=== PATIENT | male | born 1965 | race African-American/Black ===

== ENCOUNTER 2016-11-22 14:36 | Emergency (ER) | payer OTHER ==
[2016-11-22] VITALS (7 sets, daily range): BP systolic 90–111; BP diastolic 50–70; PULSE 70–85; RESP 16–17; TEMP 98; O2SAT 98–100
[~2016-11-22] VITALS: Ht 188 cm; Wt 105.0 kg
[~2016-11-22 14:36] MED LIST: ABIL5TAB6 PO; PROT40TA PO; QUET300 PO
--- NOTE | 2016-11-22 15:25 | PD ---
HPI Chief Complaint: chest pain Time Seen by Provider: 15:12 Travel History International Travel<30 days: No Contact w/Intl Traveler<30days: No History of Present Illness HPI 51 YO M with PMH of HTN, chronic pancreatitis, crack cocaine abuse, CVA 2, on Xarelto presents to the ED via EMS from [facility] for evaluation of sudden onset 7/10 central chest pain radiating to the right shoulder. Patient states that he was making a phone call, not under any particular stress at onset. He endorses accompanying shortness of breath and nausea. He denies diaphoresis or palpitations. On presentation he states the right shoulder pain is 10/10, worsened by certain movements. Also complains of 2 days history of tingling of the fingers of bilateral hands. He denies other neuro symptoms. Also complains of dark blood per rectum 1 week. He denies recent alcohol or cocaine use. PFSH Past Medical History Anxiety: Yes Depression: Yes Diminished Hearing: No Gastrointestinal Disorders: Yes (pancreatitis) Hiatal Hernia: Yes Psychiatric: Yes (S/P OD 1 MONTH AGO) Immunizations Current: Yes Pancreatitis: Yes Past Surgical History Cholecystectomy: Yes Other Surgery: Yes (CYST REMOVED FROM BUTT) Social History Alcohol Use: No (Denies; Quit drinking approx 8 mons ago per pt.) Tobacco Use: Yes (Quit 4-5 mons ago; Though did smoke last night. ) Substance Use: Yes (Drug of Choice is Powder Cocaine.) Allergies-Medications (Allergen,Severity, Reaction): Coded Allergies: Ibuprofen (Unverified Allergy, Unknown, 05/03/14) Hx Pancreatitus per pt. Reported Meds & Prescriptions Reported Meds & Active Scripts Active Reported Diphenhydramine (Diphenhydramine HCl) 25 Mg Cap 50 Mg PO BID PRN Lorazepam 2 Mg Tab 2 Mg PO BID PRN Haloperidol 5 Mg Tab 5 Mg PO BID PRN Vistaril (Hydroxyzine Pamoate) 50 Mg Cap 50 Mg PO Q4HR PRN Mirtazapine 45 Mg Tab 45 Mg PO HS Metoprolol Tartrate 25 Mg Tab 25 Mg PO BID Lisinopril 20 Mg Tab 20 Mg PO DAILY Klor-Con 10 (Potassium Chloride) 10 Meq Tab 10 Meq PO BID Lasix (Furosemide) 40 Mg Tab 40 Mg PO DAILY Zenpep (Pancrelipase) 40,000-136,000-218,000 Units Cap 2 Cap PO TIDAC Xarelto (Rivaroxaban) 20 Mg Tab 20 Mg PO DAILY Ambien (Zolpidem Tartrate) 10 Mg Tab 10 Mg PO HS Abilify (Aripiprazole) 10 Mg Tab 10 Mg PO DAILY Review of Systems Except as stated in HPI: all other systems reviewed are Neg Physical Exam Narrative GENERAL: Well-nourished, well-developed athletic black male in no acute distress. SKIN: Focused skin assessment warm/dry. HEAD: Normocephalic. EYES: No scleral icterus. No injection or drainage. NECK: Supple, trachea midline. No JVD or lymphadenopathy. CARDIOVASCULAR: Regular rate and rhythm without murmurs, gallops, or rubs. CHEST: Nontender throughout without deformity or crepitus. No retractions or use of accessory muscles. RESPIRATORY: Breath sounds clear and equal bilaterally. No accessory muscle use. GASTROINTESTINAL: Abdomen soft, non-tender, nondistended. Active bowel sounds. RECTAL EXAM: No masses or tenderness, stool is brown. Guaiac negative. MUSCULOSKELETAL: No cyanosis, or edema. Tender to palpation of the posterior aspect of the right shoulder. Resisted motion of the right shoulder elicits pain. Neurovascularly intact. BACK: Nontender without obvious deformity. No CVA tenderness. Data Data Last Documented VS Vital Signs Date Time Temp Pulse Resp B/P Pulse Ox O2 Delivery O2 Flow Rate FiO2 11/22/16 16:56 78 16 111/64 98 Room Air 11/22/16 15:23 98.0 Orders Electrocardiogram (11/22/16 15:25) B-Type Natriuretic Peptide (11/22/16 15:25) Ckmb (Isoenzyme) Profile (11/22/16 15:25) Complete Blood Count With Diff (11/22/16 15:25) Comprehensive Metabolic Panel (11/22/16 15:25) Magnesium (Mg) (11/22/16 15:25) Prothrombin Time / Inr (Pt) (11/22/16 15:25) Act Partial Throm Time (Ptt) (11/22/16 15:25) Troponin I (11/22/16 15:25) Lipase (11/22/16 15:25) Chest, Single Ap (11/22/16 15:25) Ecg Monitoring (11/22/16 15:25) Bilateral Bp Monitoring (11/22/16 15:25) Iv Access Insert/Monitor (11/22/16 15:25) Oximetry (11/22/16 15:25) Sodium Chloride 0.9% Flush (Ns Flush) (11/22/16 15:30) Nitroglycerin Sl (Nitrostat Sl) (11/22/16 15:30) Urinalysis - C+S If Indicated (11/22/16 15:25) Drug Screen, Random Urine (11/22/16 15:25) Sodium Chlor 0.9% 1000 Ml Inj (Ns 1000 M (11/22/16 15:30) Shoulder, Complete (>2vws) (11/22/16 15:36) Ice/Cold Pack (11/22/16 15:36) CKMB (11/22/16 15:45) CKMB% (11/22/16 15:45) Labs Laboratory Tests Test 11/22/16 11/22/16 15:45 15:50 White Blood Count 6.9 TH/MM3 Red Blood Count 5.26 MIL/MM3 Hemoglobin 14.1 GM/DL Hematocrit 43.3 % Mean Corpuscular Volume 82.4 FL Mean Corpuscular Hemoglobin 26.9 PG Mean Corpuscular Hemoglobin 32.6 % Concent Red Cell Distribution Width 14.4 % Platelet Count 286 TH/MM3 Mean Platelet Volume 8.1 FL Neutrophils (%) (Auto) 61.6 % Lymphocytes (%) (Auto) 26.6 % Monocytes (%) (Auto) 10.2 % Eosinophils (%) (Auto) 1.0 % Basophils (%) (Auto) 0.6 % Neutrophils # (Auto) 4.3 TH/MM3 Lymphocytes # (Auto) 1.8 TH/MM3 Monocytes # (Auto) 0.7 TH/MM3 Eosinophils # (Auto) 0.1 TH/MM3 Basophils # (Auto) 0.0 TH/MM3 CBC Comment DIFF FINAL Differential Comment Prothrombin Time 11.3 SEC Prothromb Time International 1.0 RATIO Ratio Activated Partial 34.3 SEC Thromboplast Time Sodium Level 138 MEQ/L Potassium Level 3.8 MEQ/L Chloride Level 101 MEQ/L Carbon Dioxide Level 29.3 MEQ/L Anion Gap 8 MEQ/L Blood Urea Nitrogen 11 MG/DL Creatinine 1.34 MG/DL Estimat Glomerular Filtration 68 ML/MIN Rate Random Glucose 103 MG/DL Calcium Level 9.0 MG/DL Magnesium Level 2.1 MG/DL Total Bilirubin 0.1 MG/DL Aspartate Amino Transf 24 U/L (AST/SGOT) Alanine Aminotransferase 64 U/L (ALT/SGPT) Alkaline Phosphatase 90 U/L Total Creatine Kinase 163 U/L Creatine Kinase MB 0.5 NG/ML Troponin I LESS THAN 0.02 NG/ML B-Type Natriuretic Peptide LESS THAN 2 PG/ML Total Protein 7.8 GM/DL Albumin 3.8 GM/DL Lipase 362 U/L Urine Color YELLOW Urine Turbidity CLEAR Urine pH 6.5 Urine Specific Bastian 1.012 Urine Protein NEG mg/dL Urine Glucose (UA) NEG mg/dL Urine Ketones NEG mg/dL Urine Occult Blood NEG Urine Nitrite NEG Urine Bilirubin NEG Urine Urobilinogen LESS THAN 2.0 MG/DL Urine Leukocyte Esterase NEG Urine RBC 4 /hpf Urine WBC 1 /hpf Urine Squamous Epithelial <1 /hpf Cells Microscopic Urinalysis Comment CULT NOT INDICATED Urine Opiates Screen NEG Urine Barbiturates Screen NEG Urine Amphetamines Screen NEG Urine Benzodiazepines Screen NEG Urine Cocaine Screen NEG Urine Cannabinoids Screen NEG MDM Medical Decision Making Medical Screen Exam Complete: Yes Emergency Medical Condition: Yes Interpretation(s) EKG rate 88, sinus rhythm. ND interval 161, QRS 92, QTC 366. No ST changes. Reviewed by Dr. Valentine. Differential Diagnosis Chest pain versus ACS versus musculoskeletal pain versus anemia versus CHF exacerbation versus GI bleed versus psychogenic pain versus drug seeking behavior versus Narrative Course 51 YO M with PMH of HTN, chronic pancreatitis, crack cocaine abuse, CVA 2, on Xarelto presents to the ED via EMS from [facility] for evaluation of sudden onset 7/10 central chest pain radiating to the right shoulder. He endorses accompanying shortness of breath and nausea. He denies diaphoresis or palpitations. On presentation he states the right shoulder pain is 10/10, worsened by certain movements. Also complains of 2 days history of tingling of the fingers of bilateral hands. He denies other neuro symptoms. Also complains of dark blood per rectum 1 week. He denies recent alcohol or cocaine use. He alternately complains of chest pain, shoulder pain, neck pain. He is a less than ideal historian. Vitals reviewed. Physical exam reveals a nontoxic-appearing black male in no acute distress. There is no tenderness of the precordium. The chest is clear to auscultation bilaterally. Regular rate and rhythm. No tenderness to palpation of the right shoulder though he does cry out in pain when he attempts to use his right arm to assist himself to sit up. Guaiac negative on rectal exam. Ice pack was applied to the shoulder. The patient was administered aspirin and a single dose of nitroglycerin with no improvement of his symptoms. No concerning abnormalities of the CBC, CMP, coags , UA, tox screen. EKG as above. Chest x-ray without acute cardiopulmonary disease. Cardiac enzymes negative 1. Shoulder x-ray reveals no acute disease. I discussed the results of the workup with the patient. I don't think his pain is cardiogenic. He is instructed to follow up with the primary care. He is agreeable to this plan. He is stable and discharged home. [facility] Point of Care Internal Pos. & Neg. Controls: Passed Fecal Specimen Occult Blood: Negative Diagnosis Primary Impression: Pain Referrals: Primary Care Physician Patient Instructions: General Instructions, Shoulder Pain (ED) Additional Instructions: Rest, hydrate. Return to normal, gentle activities as tolerated. Warm compresses or ice packs applied to areas of pain may help to improve your symptoms. Take Tylenol as needed for continued symptoms. Follow-up with primary care doctor. Return to the ED for any urgent or emergent medical condition. Disposition: 65 DISC TO PSYCH CARE FACILITY Condition: Stable Nya Peterson Nov 22, 2016 15:25
[2016-11-22] MEDS ORDERED: SODIUM CHLOR 0.9% 1000 ML INJ 1,000 ML IV ONE (15:30)
[2016-11-22] MEDS ORDERED: SODIUM CHLORIDE 0.9% FLUSH 10 ML FLUSH IVF PRN (15:30)
[2016-11-22] MEDS: NITROGLYCERIN 0.4 MG SL 25 TABS/BTL SL SCH ×3 (15:35→16:05)
[2016-11-22 16:08] LABS: BLOOD, URINE NEG (NEG); COMMENT (UR) CULT NOT INDICATED; CULTURE IF INDICATED CULT NOT INDICATED; GLUCOSE,URINE NEG (NEG); KETONE, URINE NEG (NEG); NITRITE,URINE NEG (NEG); PH, URINE 6.5 (5.0-8.5); SQUAMOUS EPITHELIAL CELL URINE <1 /hpf (0-5); URINE COLOR YELLOW (YELLW/STRAW)
[2016-11-22 16:12] LABS: AUTOMATED NEUTROPHIL # 4.3 TH/MM3 (1.8-7.7); BASOPHIL % 0.6 % (0.0-2.0); EOSINOPHIL # 0.1 TH/MM3 (0-0.4); HEMATOCRIT 43.3 % (39.0-51.0); HEMO FLAGS DIFF FINAL; LYMPH % 26.6 % (9.0-44.0); LYMPHOCYTE # 1.8 TH/MM3 (1.0-4.8); MEAN CELL VOLUME 82.4 FL (80.0-100.0); MEAN CORPUSCULAR HEMOGLOBIN 26.9 PG (27.0-34.0); MEAN CORPUSCULAR HGB CONC 32.6 % (32.0-36.0); MONO % 10.2 % (0.0-8.0); NEUT % 61.6 % (16.0-70.0); PLATELET COUNT 286 TH/MM3 (150-450); RED BLOOD COUNT 5.26 MIL/MM3 (4.50-5.90); RED CELL DISTRIBUTION WIDTH 14.4 % (11.6-17.2); WHITE BLOOD COUNT 6.9 TH/MM3 (4.0-11.0)
[2016-11-22 16:16] LABS: APTT (PATIENT) 34.3 SEC (24.3-30.1); PROTHROMBIN TIME - PATIENT 11.3 SEC (9.8-11.6)
[2016-11-22 16:30] LABS: ANION GAP 8 MEQ/L (5-15); AST (GOT) 24 U/L (15-37); BICARBONATE 29.3 MEQ/L (21.0-32.0); BLOOD UREA NITROGEN 11 MG/DL (7-18); CHLORIDE 101 MEQ/L (98-107); GLOMERULAR FILTRATION RATE 68 ML/MIN (>89); MAGNESIUM 2.1 MG/DL (1.5-2.5); POTASSIUM 3.8 MEQ/L (3.5-5.1); SODIUM (NA) 138 MEQ/L (136-145)
[2016-11-22 16:35] LABS: ALKALINE PHOSPHATASE 90 U/L (45-117); ALT (GPT) 64 U/L (12-78); CREATINE KINASE 163 U/L (39-308); TOTAL BILIRUBIN ADULT 0.1 MG/DL (0.2-1.0)
[2016-11-22] MEDS ORDERED: VIST50CA PO (16:46)
[2016-11-22] MEDS ORDERED: MIRT45TA PO (16:46)
[2016-11-22] MEDS ORDERED: ARIP1TAB5 PO (16:46)
[2016-11-22] MEDS ORDERED: FURO1TAB60 PO (16:46)
[2016-11-22] MEDS ORDERED: XARE20TA PO (16:46)
[2016-11-22] MEDS ORDERED: LORA2TAB7 PO (16:46)
[2016-11-22] MEDS ORDERED: AMBI10TA PO (16:46)
[2016-11-22] MEDS ORDERED: HALO5TAB PO (16:46)
[2016-11-22] MEDS ORDERED: PANC1CAP9 PO (16:46)
[2016-11-22] MEDS ORDERED: METO25TA3 PO (16:46)
[2016-11-22] MEDS ORDERED: POTA-243 PO (16:46)
[2016-11-22] MEDS ORDERED: LISI-515 PO (16:46)
[2016-11-22 16:47] LABS: CKMB 0.5 NG/ML (0.5-3.6)
[2016-11-22] MEDS ORDERED: DIPH25CA PO (16:47)
--- NOTE | 2016-11-22 17:20 | RADRPT ---
EXAM DATE/TIME: 11/22/2016 16:56 [facility] COMPARISON: No previous studies available for comparison. INDICATIONS : Right shoulder pain starting today with no known trauma MEDICAL HISTORY : None. SURGICAL HISTORY : None. ENCOUNTER: Initial ACUITY: 1 day PAIN SCORE: 5/10 LOCATION: Right entire shoulder FINDINGS: Multiple view examination of the right shoulder demonstrates no evidence of fracture or dislocation. The glenohumeral and acromioclavicular joints are maintained. There is normal range of motion betwe en internal and external rotation. Bony mineralization is normal. CONCLUSION: No acute disease. Pierce Lorenzo MD on November 22, 2016 at 17:18 Board Certified Radiologist. This report was verified electronically.
--- NOTE | 2016-11-22 17:20 | RADRPT ---
EXAM DATE/TIME: 11/22/2016 16:55 [facility] COMPARISON: No previous studies available for comparison. INDICATIONS : Chest pain starting today MEDICAL HISTORY : None. SURGICAL HISTORY : None. ENCOUNTER: Initial ACUITY: 1 day PAIN SCORE: 5/10 LOCATION: Bilateral chest FINDINGS: A single view of the chest demonstrates hypoaeration of the lungs with some minimal airspace disease in left base. There is no evidence of consolidation. The heart and mediastinal structures are unremar kable. CONCLUSION: Minimal left basilar airspace disease characteristic of mild atelectasis. No consolidating infiltrate or acute congestion. Pierce Lorenzo MD on November 22, 2016 at 17:17 Board Certified Radiologist. This report was verified electronically.
--- NOTE | 2016-11-23 11:16 | EKG ---
Date Performed: 11/22/2016 Time Performed: 15:14:54 PTAGE: 51 years EKG: Sinus rhythm NONSPECIFIC T-WAVE ABNORMALITY BORDERLINE ECG NO PREVIOUS TRACING DOCTOR: Joel Cotton Interpretating Date/Time 11/23/2016 11:13:10
== END 2016-11-22 18:04 ==
LOC: NEPD 14:36
DX: M25.511 Pain in right shoulder (principal); K85.90 Acute pancreatitis without necrosis or infection, unspecified; Z87.891 Personal history of nicotine dependence
CPT/HCPCS: 71010; 73030; 80053; 80307; 81001; 82550; 82552; 83690; 83735; 83880; 84484; 85025; 85610; 85730; 93005; 96360; 96361; 99285; J7030

== ENCOUNTER 2016-12-16 11:13 | Inpatient (IN) | payer MEDICAID, OTHER ==
[~2016-12-16] VITALS: Ht 188 cm; Wt 115.6 kg
[~2016-12-16 11:13] MED LIST changes: -ABIL5TAB6 PO; +AMBI10TA PO; +ARIP1TAB5 PO; +DIPH25CA PO; +FURO1TAB60 PO; +HALO5TAB PO; +LISI-515 PO; +LORA2TAB7 PO; +METO25TA3 PO; +MIRT45TA PO; +PANC1CAP9 PO; +POTA-243 PO; -PROT40TA PO; -QUET300 PO; +VIST50CA PO; +XARE20TA PO
--- NOTE | 2016-12-16 11:19 | PD ---
HPI . BA for hearing voices and aggressive behavior Chief Complaint: BA for hearing voices and aggressive behavior Time Seen by Provider: 11:19 Travel History International Travel<30 days: No Contact w/Intl Traveler<30days: No Traveled to known affect area: No History of Present Illness HPI 51 yr old male here under [place] Act. He was hearing voices and they were talking about him. He apparently had a baseball bat and was getting aggressive with surrounding people. He denies any suicide or homicide ideation. He recently had labs on Nov 22. He admits to using cocaine last night. PFSH Past Medical History Anxiety: Yes Depression: Yes Congestive Heart Failure: Yes Cerebrovascular Accident: Yes (X 2) Diabetes: No (HYPOGYLCEMIA) Diminished Hearing: No Gastrointestinal Disorders: Yes (pancreatitis) Hiatal Hernia: Yes Psychiatric: Yes Immunizations Current: Yes Pancreatitis: Yes Past Surgical History Cholecystectomy: Yes Other Surgery: Yes (CYST REMOVED FROM BUTT) Social History Alcohol Use: No (DENIES ) Tobacco Use: No (DENIES) Substance Use: Yes (HX CRACK) Allergies-Medications (Allergen,Severity, Reaction): Coded Allergies: ibuprofen (Unverified Allergy, Unknown, Hives, 12/16/16) hives Reported Meds & Prescriptions Reported Meds & Active Scripts Active Reported Diphenhydramine (Diphenhydramine HCl) 25 Mg Cap 50 Mg PO BID PRN Lorazepam 2 Mg Tab 2 Mg PO BID PRN Haloperidol 5 Mg Tab 5 Mg PO BID PRN Vistaril (Hydroxyzine Pamoate) 50 Mg Cap 50 Mg PO Q4HR PRN Mirtazapine 45 Mg Tab 45 Mg PO HS Metoprolol Tartrate 25 Mg Tab 25 Mg PO BID Lisinopril 20 Mg Tab 20 Mg PO DAILY Klor-Con 10 (Potassium Chloride) 10 Meq Tab 10 Meq PO BID Lasix (Furosemide) 40 Mg Tab 40 Mg PO DAILY Zenpep (Pancrelipase) 40,000-136,000-218,000 Units Cap 2 Cap PO TIDAC Xarelto (Rivaroxaban) 20 Mg Tab 20 Mg PO DAILY Ambien (Zolpidem Tartrate) 10 Mg Tab 10 Mg PO HS Abilify (Aripiprazole) 10 Mg Tab 10 Mg PO DAILY Review of Systems General / Constitutional: No: Fever Eyes: No: Visual changes HENT: No: Headaches Cardiovascular: No: Chest Pain or Discomfort Respiratory: No: Shortness of Breath Gastrointestinal: No: Abdominal Pain Genitourinary: No: Dysuria Musculoskeletal: No: Pain Skin: No Rash Neurologic: No: Weakness Psychiatric: Positive: Disorder of Thought, No: Depression Endocrine: No: Polydipsia Hematologic/Lymphatic: No: Easy Bruising Physical Exam Narrative GENERAL: AAO x 3, no acute distress, Well-nourished, well-developed patient. SKIN: Warm and dry. No visible rashes or bruising. HEAD: Normocephalic and atraumatic. EYES: No scleral icterus. No injection or drainage. EOM intact, PERRLA ENT: No nasal drainage noted. Mucous membranes pink. Airway patent. NECK: Supple, trachea midline. No JVD. CARDIOVASCULAR: Regular rate and rhythm without murmurs, gallops, or rubs. RESPIRATORY: Breath sounds equal bilaterally. No accessory muscle use. No rhonchi or rales. GASTROINTESTINAL: Abdomen soft, non-tender, nondistended. no rebound or guarding EXTREMITIES: No cyanosis or edema. BACK: No obvious deformity. NEURO: CN II-12 intact, brain surgeon strength normal b/l, UE and LE 5/5, no focal deficits PSYCH: AAO x 3, disorganized thought, appears to be looking around exam room randomly, Data Data Last Documented VS Vital Signs Date Time Temp Pulse Resp B/P (MAP) Pulse Ox O2 Delivery O2 Flow Rate FiO2 12/16/16 11:20 18 12/16/16 11:20 97.8 89 115/74 (88) 98 Orders Orders Psych Screen (12/16/16 11:21) Drug Screen, Random Urine (12/16/16 11:21) Alcohol (Ethanol) (12/16/16 11:21) Labs Laboratory Tests Test 12/16/16 11:30 [facility] Medical Decision Making Medical Screen Exam Complete: Yes Emergency Medical Condition: Yes Medical Record Reviewed: Yes Differential Diagnosis drug induced mood disorder, schizophrenia, polysubstance abuse Narrative Course 51 yr old male here under [place] Act. Labs were reviewed from 11/22/16. I have requested drug and alcohol screen. Psych screen also requested. Patient will be medically cleared for psych screen. I have medically cleared the patient as the etoh and drug screen will not change any of my recommendations. He does not have any medical complaints. Diagnosis Primary Impression: Aggressive behavior Condition: Stable Mangali,Ramandeep PA Dec 16, 2016 11:19
[2016-12-16 11:20] VITALS: BP 115/74; PULSE 89; RESP 18; TEMP 97.8; O2SAT 98
[2016-12-16 13:29] VITALS: BP 110/79; PULSE 76; RESP 17; TEMP 97.8; O2SAT 99
[2016-12-16] MEDS ORDERED: BENZTROPINE MESYLATE 2 MG/2 ML VIAL IM PRN (15:30)
[2016-12-16] MEDS ORDERED: LORazepam 2 MG/ML VIAL IM PRN (15:30)
[2016-12-16] MEDS ORDERED: ALUMINUM/MAGNESIUM/SIMETH 30 ML CUP PO PRN (15:30)
[2016-12-16] MEDS ORDERED: BENZTROPINE MESYLATE 1 MG TAB PO PRN (15:30)
[2016-12-16] MEDS ORDERED: ACETAMINOPHEN 325 MG TAB PO PRN (15:30)
[2016-12-16] MEDS ORDERED: MAGNESIUM HYDROXIDE SUSP 30 ML CUP PO PRN (15:30)
[2016-12-16 15:40] VITALS: BP 122/83; TEMP 97.8
[2016-12-16 15:57] VITALS: BP 138/90; PULSE 78; RESP 18; TEMP 98.1; O2SAT 97
[2016-12-16 16:31] LABS: ALT (GPT) 55 U/L (12-78); ANION GAP 13 MEQ/L (5-15); AST (GOT) 26 U/L (15-37); BICARBONATE 23.2 MEQ/L (21.0-32.0); BLOOD UREA NITROGEN 13 MG/DL (7-18); CHLORIDE 104 MEQ/L (98-107); GLOMERULAR FILTRATION RATE 66 ML/MIN (>89); POTASSIUM 3.2 MEQ/L (3.5-5.1); SODIUM (NA) 140 MEQ/L (136-145)
[2016-12-16 16:42] LABS: ALKALINE PHOSPHATASE 84 U/L (45-117); TOTAL BILIRUBIN ADULT 0.4 MG/DL (0.2-1.0)
[2016-12-16 20:13] LABS: APTT (PATIENT) 29.4 SEC (24.3-30.1); PROTHROMBIN TIME - PATIENT 10.7 SEC (9.8-11.6)
[2016-12-16 20:14] LABS: AUTOMATED NEUTROPHIL # 2.6 TH/MM3 (1.8-7.7); BASOPHIL % 0.6 % (0.0-2.0); EOSINOPHIL # 0.2 TH/MM3 (0-0.4); EOSINOPHIL % 3.3 % (0.0-4.0); HEMATOCRIT 39.6 % (39.0-51.0); HEMO FLAGS DIFF FINAL; LYMPH % 37.6 % (9.0-44.0); MEAN CELL VOLUME 83.2 FL (80.0-100.0); MEAN CORPUSCULAR HEMOGLOBIN 26.6 PG (27.0-34.0); MEAN CORPUSCULAR HGB CONC 31.9 % (32.0-36.0); NEUT % 48.5 % (16.0-70.0); PLATELET COUNT 228 TH/MM3 (150-450); RED BLOOD COUNT 4.76 MIL/MM3 (4.50-5.90); RED CELL DISTRIBUTION WIDTH 15.4 % (11.6-17.2); WHITE BLOOD COUNT 5.3 TH/MM3 (4.0-11.0)
[2016-12-17 05:48] VITALS: BP 149/82; PULSE 77; RESP 18; TEMP 98.6; O2SAT 98
[2016-12-17] MEDS ORDERED: REMOVE OLD PATCH T-DERMAL SCH (09:00)
[2016-12-17] MEDS ORDERED: NICOTINE 21 MG/24 HR PATCH T-DERMAL SCH (09:00)
--- NOTE | 2016-12-17 09:13 | HHI.HP ---
Provisional Diagnosis Admission Date Dec 16, 2016 at 15:24 [place] I. 1. Other psychotic disorder Rule out primary psychotic disorder like schizophrenia Rule out drug-induced psychotic disorder 2. Cocaine abuse [place] II. Deferred Certification of Person's Competence To Provide Express and Informed Consent I have personally examined Rayray Redman , a person being served at [facility] on, Dec 17, 2016 09:13. Express and informed consent means consent voluntarily given in writing, by a competent person, after sufficient explanation and disclosure of the subject matter involved to enable the person to make a knowing and willful decision without any element of force, fraud, deceit, duress, or other form of constraint or coercion. This person is 18 years of age or older, is not now known to be incompetent to consent to treatment with a guardian advocate, and does not have a health care surrogate or proxy currently making medical treatment decisions. I have found this person to be one of the following: [x] Competent to provide express and informed consent, as defined above, for voluntary admission to this facility and is competent to provide express and informed consent for treatment. He/she has the consistent capacity to make well reasoned, willful, and knowing decisions concerning his or her medical or mental health treatment. The person fully and consistently understands the purpose of the admission for examination/placement and is fully capable of personally exercising all rights assured [place] Incompetent to provide express and informed consent to voluntary admission, and this is incompetent to provide express and informed consent to treatment. The person must be transferred to involuntary status and a petition for a guardian advocate filed with the Circuit Court. [] Refusing to provide express and informed consent to voluntary admission but is competent to provide express and informed consent for treatment. The person must be discharged or transferred to involuntary status. Form shall be completed within 24 hours of a person's arrival at the receiving facility and filed in the clinical record of each person: 1. Admitted on a voluntary basis 2. Permitted to provide express and informed consent to his/her own treatment 3. Allowed to transfer from involuntary to voluntary status 4. Prior to permitting a person to consent to his or her own treatment after having been previously found incompetent to consent to treatment. History of Present Illness Capacity: Has Capacity HPI Mr. Redman is a 51-year-old male with a reported history of bipolar illness who presents under a Lee act from [employer] alleging that the patient had a history of mental illness and was walking around with a bat. Reviewing the electronic medical record, I note that the patient was admitted most recently here under Dr. Siegel 2014. Patient seen and examined with nurse. Chart reviewed. Case discussed with nursing staff. On my examination today, the patient presents as tense and paranoid. He says that he thought that there was someone under the couch or in the closet of the place where he was staying and so he got a baseball bat in order to protect himself. He reports that something similar happened 3 months ago, and at that time he was walking around with a knife. He says that he has been off of his psychotropic medications because he doesn't have a stable place to store them. He does admit to feeling subjectively edgy and paranoid. He denies any audiovisual hallucinations. Denies any suicidal or homicidal ideation. No depressive symptoms. No hypomanic or manic symptoms. No other delusional material. The remainder of the psychiatric ROS is negative. He complains of generalized myalgias but otherwise has no physical complaints. Past psychiatric history: Reports a history of bipolar illness. He reports that he hasn't seen a psychiatrist in 2 months on an outpatient basis. He was at [facility] about a month ago. He endorses a history of suicide attempt by overdose. Family history: Patient denies any family history of mental illness. Unable dependency history: Patient reports that he uses crack cocaine about every 6 months. He also smokes occasional cannabis. He smokes cigars. Denies any other substance use. Social history: The patient reports that he lives in [place]. He is presently sleeping on someone's couch. He is . At this point, the patient is unable to tolerate further interview and concludes the interview. Review of Systems ROS Limitations: Psychotic Except as stated in HPI: all other systems reviewed are Neg Past Psych History Psychological trauma history No reported trauma history to me. Violence risk - others (6 mos) Indeterminate. Irritable and psychotic. Violence risk - self (6 mos) Indeterminate. Substance Abuse History Drugs/Alcohol past 12 months See above Past Family Social History Coded Allergies: ibuprofen (Unverified Allergy, Unknown, Hives, 12/16/16) hives Past Medical History Reports a history of hypertension, chronic pain and CHF. Reported Medications Diphenhydramine (Diphenhydramine) 25 Mg Cap, 50 MG PO BID Y for AGITATION, CAP 0 Refills 11/22/16 Lorazepam (Lorazepam) 2 Mg Tab, 2 MG PO BID Y for AGITATION, TAB 0 Refills 11/22/16 Haloperidol (Haloperidol) 5 Mg Tab, 5 MG PO BID Y for AGITATION, TAB 0 Refills 11/22/16 Hydroxyzine Pamoate (Vistaril) 50 Mg Cap, 50 MG PO Q4HR Y for ANXIETY, CAP 0 Refills 11/22/16 Mirtazapine (Mirtazapine) 45 Mg Tab, 45 MG PO HS for Depression Control, #30 TAB 0 Refills 11/22/16 Metoprolol Tartrate (Metoprolol Tartrate) 25 Mg Tab, 25 MG PO BID, #60 TAB 0 Refills 11/22/16 Lisinopril (Lisinopril) 20 Mg Tab, 20 MG PO DAILY, #30 TAB 0 Refills 11/22/16 Potassium Chloride ER (Klor-Con 10) 10 Meq Tab, 10 MEQ PO BID for Electrolyte Replacement, #60 TAB 0 Refills 11/22/16 Furosemide (Lasix) 40 Mg Tab, 40 MG PO DAILY, #30 TAB 0 Refills 11/22/16 Pancrelipase (Zenpep) 40,000-136,000-218,000 Units Cap, 2 CAP PO TIDAC for Digestive Aid, #90 CAP 0 Refills 11/22/16 Rivaroxaban (Xarelto) 20 Mg Tab, 20 MG PO DAILY for Blood Clot Prevention, TAB 0 Refills 11/22/16 Zolpidem (Ambien) 10 Mg Tab, 10 MG PO HS for INSOMNIA, TAB 0 Refills 11/22/16 Aripiprazole (Abilify) 10 Mg Tab, 10 MG PO DAILY, #30 TAB 0 Refills 11/22/16 Current Medications Medications (Trade) Dose Ordered Sig/Alia Route Start Time Stop Time Status Last Admin (Ativan) 1 mg Q6H PRN PO 12/16/16 15:30 (Ativan Inj) 1 mg Q6H PRN IM 12/16/16 15:30 (Benadryl) 50 mg HS PRN PO 12/16/16 15:30 (Tylenol) 650 mg Q4H PRN PO 12/16/16 15:30 (Milk Of Magnesia Liq) 30 ml DAILY PRN PO 12/16/16 15:30 (Mag-Al Plus Susp Liq) 30 ml Q6H PRN PO 12/16/16 15:30 (Cogentin) 1 mg Q12H PRN PO 12/16/16 15:30 (Cogentin Inj) 1 mg Q12H PRN IM 12/16/16 15:30 Patient's Strengths (min. 2) In a monitored setting. Verbally fluent. Physical Exam Physical exam completed by hospitalist data processing systems consultant. On my examination today, patient appears to be in no acute physical distress. No motor abnormalities noted. Labs and vitals reviewed: Vital Signs Vital Signs Date Time Temp Pulse Resp B/P (MAP) Pulse Ox O2 Delivery O2 Flow Rate FiO2 12/17/16 05:48 98.6 77 18 149/82 (104) 98 12/16/16 13:29 Room Air Lab Results Test 12/16/16 11:30 12/16/16 13:20 12/16/16 19:34 Blood Urea Nitrogen 13 MG/DL Creatinine 1.39 MG/DL Random Glucose 111 MG/DL Total Protein 7.3 GM/DL Albumin 3.9 GM/DL Calcium Level 9.4 MG/DL Alkaline Phosphatase 84 U/L Aspartate Amino Transf (AST/SGOT) 26 U/L Alanine Aminotransferase (ALT/SGPT) 55 U/L Total Bilirubin 0.4 MG/DL Sodium Level 140 MEQ/L Potassium Level 3.2 MEQ/L Chloride Level 104 MEQ/L Carbon Dioxide Level 23.2 MEQ/L Anion Gap 13 MEQ/L Estimat Glomerular Filtration Rate 66 ML/MIN Thyroid Stimulating Hormone 3rd Gen 0.733 uIU/ML Ethyl Alcohol Level LESS THAN 3 MG/DL Urine Opiates Screen NEG Urine Barbiturates Screen NEG Urine Amphetamines Screen NEG Urine Benzodiazepines Screen NEG Urine Cocaine Screen POS Urine Cannabinoids Screen POS White Blood Count 5.3 TH/MM3 Red Blood Count 4.76 MIL/MM3 Hemoglobin 12.7 GM/DL Hematocrit 39.6 % Mean Corpuscular Volume 83.2 FL Mean Corpuscular Hemoglobin 26.6 PG Mean Corpuscular Hemoglobin Concent 31.9 % Red Cell Distribution Width 15.4 % Platelet Count 228 TH/MM3 Mean Platelet Volume 8.4 FL Neutrophils (%) (Auto) 48.5 % Lymphocytes (%) (Auto) 37.6 % Monocytes (%) (Auto) 10.0 % Eosinophils (%) (Auto) 3.3 % Basophils (%) (Auto) 0.6 % Neutrophils # (Auto) 2.6 TH/MM3 Lymphocytes # (Auto) 2.0 TH/MM3 Monocytes # (Auto) 0.5 TH/MM3 Eosinophils # (Auto) 0.2 TH/MM3 Basophils # (Auto) 0.0 TH/MM3 CBC Comment DIFF FINAL Differential Comment Prothrombin Time 10.7 SEC Prothromb Time International Ratio 1.0 RATIO Activated Partial Thromboplast Time 29.4 SEC Hypokalemia repleted by the hospitalist Mental Status Examination No motor abnormalities noted. Speech: Unremarkable Orientation: x3 Memory: Unremarkable Thought Process: Logical, Linear Thought Content: Paranoid Language Unremarkable Fund of Knowledge Average Hallucination Type: None Attention and Concentration: Good Suicidal Ideation: No Previous Suicide Attempts: Yes Homicidal Ideation: No Previous Homicide Attempts: No Insight: Fair Judgment: Poor Affect: Other (restricted, irritable) Mood: Other (dysphoric) Assessment & Plan Problem List: (1) Other psychotic disorder not due to a substance or known physiological condition ICD Codes: F28 - Other psychotic disorder not due to a substance or known physiological condition (2) Cocaine abuse ICD Codes: F14.10 - Cocaine abuse, uncomplicated Assessment & Plan 51-year-old [place] male with psychiatric history as detailed above who presents under Lee act. On my examination today, the patient presents as tense, irritable and paranoid. Reports a history of bipolar illness although his presentation today is more psychotic in nature. Unclear if he has a primary psychotic illness such as schizophrenia or schizoaffective disorder, primary mood illness with psychotic features, or if his current presentation is largely a result of his substance use. Patient requires psychiatric hospitalization at this time for safety, observation and stabilization. Admit inpatient. Voluntary status. Check hemoglobin A1c and lipid panel. Check coagulation studies. Check BMP and magnesium in the morning. Consult to the hospitalist. Seroquel 50 mg twice daily with plans to titrate to effect for psychosis. Ativan as needed for anxiety, Cogentin as needed for EPS, Benadryl as needed for sleep. Vitals every shift. Counselor to see. Disposition planning. Estimated length of stay: 3-5 days. Discharge Planning Pending stabilization Request HC Surrog/Guard Advoc?: No Nadeem Long MD Dec 17, 2016 09:13
--- NOTE | 2016-12-17 09:28 | PD.CONS ---
[facility] By Nadeem Long MD Reason for Consult Medical management Primary Care Physician No Primary Care Physician Diagnoses: History of Present Illness This is a pleasant 51 y/o male who was brought in under [place] Act due to he was hearing voices and they were talking about him was Aggressive with surrounding people, denied suicide ideas or Homicide ideation, he admitted to abuse Cocaine last night before admission, has Anxiety disorder, Depression with another Psychiatric Hospitalizations, CVA x 2, Pancreatitis, Hiatal Hernia, he has Obesity, Hypertension and CHF he is not taking medicines for the last two months will re start some of them and follow along with Psychiatry specialist. His potassium today is 3.2 he is completely asymptomatic. Review of Systems Constitutional: DENIES: Fever, Chills, Change in appetite Endocrine: DENIES: Heat/cold intolerance Eyes: DENIES: Blurred vision, Eye pain Except as stated in HPI: all other systems reviewed are Neg Past Family Social History Allergies: Coded Allergies: ibuprofen (Unverified Allergy, Unknown, Hives, 12/16/16) hives Past Medical History Anxiety disorder Depression with another Psychiatric Hospitalizations CVA x 2 Pancreatitis Hiatal Hernia Past Surgical History Cholecystectomy Pilonidal cyst removal Reported Medications Reported Meds & Active Scripts Active Reported Diphenhydramine (Diphenhydramine HCl) 25 Mg Cap 50 Mg PO BID PRN Lorazepam 2 Mg Tab 2 Mg PO BID PRN Haloperidol 5 Mg Tab 5 Mg PO BID PRN Vistaril (Hydroxyzine Pamoate) 50 Mg Cap 50 Mg PO Q4HR PRN Mirtazapine 45 Mg Tab 45 Mg PO HS Metoprolol Tartrate 25 Mg Tab 25 Mg PO BID Lisinopril 20 Mg Tab 20 Mg PO DAILY Klor-Con 10 (Potassium Chloride) 10 Meq Tab 10 Meq PO BID Lasix (Furosemide) 40 Mg Tab 40 Mg PO DAILY Zenpep (Pancrelipase) 40,000-136,000-218,000 Units Cap 2 Cap PO TIDAC Xarelto (Rivaroxaban) 20 Mg Tab 20 Mg PO DAILY Ambien (Zolpidem Tartrate) 10 Mg Tab 10 Mg PO HS Abilify (Aripiprazole) 10 Mg Tab 10 Mg PO DAILY Active Ordered Medications Current Medications Medications (Trade) Dose Ordered Sig/Alia Route Start Time Stop Time Status Last Admin (Ativan) 1 mg Q6H PRN PO 12/16/16 15:30 (Ativan Inj) 1 mg Q6H PRN IM 12/16/16 15:30 (Benadryl) 50 mg HS PRN PO 12/16/16 15:30 (Tylenol) 650 mg Q4H PRN PO 12/16/16 15:30 (Milk Of Magnesia Liq) 30 ml DAILY PRN PO 12/16/16 15:30 (Mag-Al Plus Susp Liq) 30 ml Q6H PRN PO 12/16/16 15:30 (Cogentin) 1 mg Q12H PRN PO 12/16/16 15:30 (Cogentin Inj) 1 mg Q12H PRN IM 12/16/16 15:30 Family History Father and Mother with CAD and Hypertension, also Brother with Hypertension. Social History accepted to consumption of Crack Cocaine Smoke Cigars and basically he is Homeless. Physical Exam Vital Signs Vital Signs Date Time Temp Pulse Resp B/P (MAP) Pulse Ox O2 Delivery O2 Flow Rate FiO2 12/17/16 05:48 98.6 77 18 149/82 (104) 98 12/16/16 15:57 98.1 78 18 138/90 (106) 97 12/16/16 15:40 97.8 78 16 122/83 (96) 99 12/16/16 13:29 97.8 76 17 110/79 (89) 99 Room Air 12/16/16 11:20 18 12/16/16 11:20 97.8 89 18 115/74 (88) 98 Physical Exam GENERAL: Obese in no acute distress. SKIN: Warm and dry. No visible rashes or bruising. HEAD: Normocephalic and atraumatic. EYES: No scleral icterus. No injection or drainage. EOM intact, PERRLA ENT: No nasal drainage noted. Mucous membranes pink. Airway patent. NECK: Supple, trachea midline. No JVD. CARDIOVASCULAR: Regular rate and rhythm without murmurs, gallops, or rubs. RESPIRATORY: Breath sounds equal bilaterally. No accessory muscle use. No rhonchi or rales. GASTROINTESTINAL: Abdomen soft, non-tender, nondistended. no rebound or guarding EXTREMITIES: No cyanosis or edema. NEURO: CN II-12 intact, cylinder inspector and tester strength normal b/l, UE and LE 5/5, no focal deficits PSYCH: AAO x 3, good mood. Laboratory Laboratory Tests Test 12/16/16 11:30 12/16/16 13:20 12/16/16 19:34 Blood Urea Nitrogen 13 Creatinine 1.39 Random Glucose 111 Total Protein 7.3 Albumin 3.9 Calcium Level 9.4 Alkaline Phosphatase 84 Aspartate Amino Transf (AST/SGOT) 26 Alanine Aminotransferase (ALT/SGPT) 55 Total Bilirubin 0.4 Sodium Level 140 Potassium Level 3.2 Chloride Level 104 Carbon Dioxide Level 23.2 Anion Gap 13 Estimat Glomerular Filtration Rate 66 Thyroid Stimulating Hormone 3rd Gen 0.733 Ethyl Alcohol Level LESS THAN 3 Urine Opiates Screen NEG Urine Barbiturates Screen NEG Urine Amphetamines Screen NEG Urine Benzodiazepines Screen NEG Urine Cocaine Screen POS Urine Cannabinoids Screen POS White Blood Count 5.3 Red Blood Count 4.76 Hemoglobin 12.7 Hematocrit 39.6 Mean Corpuscular Volume 83.2 Mean Corpuscular Hemoglobin 26.6 Mean Corpuscular Hemoglobin Concent 31.9 Red Cell Distribution Width 15.4 Platelet Count 228 Mean Platelet Volume 8.4 Neutrophils (%) (Auto) 48.5 Lymphocytes (%) (Auto) 37.6 Monocytes (%) (Auto) 10.0 Eosinophils (%) (Auto) 3.3 Basophils (%) (Auto) 0.6 Neutrophils # (Auto) 2.6 Lymphocytes # (Auto) 2.0 Monocytes # (Auto) 0.5 Eosinophils # (Auto) 0.2 Basophils # (Auto) 0.0 CBC Comment DIFF FINAL Differential Comment Prothrombin Time 10.7 Prothromb Time International Ratio 1.0 Activated Partial Thromboplast Time 29.4 Result Diagram: 12/16/16 1934 12/16/16 1130 Imaging No new imaging studies. Assessment and Plan Assessment and Plan 1. Psychosis continue Psychiatric management 2. Anxiety disorder/Depression continue psychiatric managemetn 3. CVA x 2 to continue Xarelto 4. pancreatitis by history continue present care 5. Hypertension controlled started some of his medicines and follow 6. Hypokalemia replacing and following 7. Severe Medical non compliance the patient was not on any medicine for the last two months. 8. Obesity strongly recommended diet and exercise 9. Cocaine abuse and Tobacco dependence strongly recommended to stop this kind of behavior. Complete laboratory DVT prophylaxis with Xarelto Code Status Full Code Discussed Condition With Patient. Denny Winters MD Dec 17, 2016 09:28
[2016-12-17] MEDS ORDERED: POTASSIUM CHLORIDE 20 MEQ CONTROLLED RELEASE TAB PO ONE ×2 (09:30→12:00)
[2016-12-17] MEDS ORDERED: risperiDONE 0.5 MG TAB PO SCH (10:30)
[2016-12-17] MEDS ORDERED: RISP4TAB41 PO (11:20)
[2016-12-17 11:38] LABS: HDL CHOLESTEROL 39.6 MG/DL (40.0-60.0); LDL CHOLESTEROL 47 MG/DL (0-99)
[2016-12-17] MEDS: LIPASE/PROTEASE/AMYLASE (24,000/76,000/120,000) CAP PO SCH ×2 (12:00→17:06)
[2016-12-17 12:55] LABS: HEMOGLOBIN A1a 1.2 %; HEMOGLOBIN A1b 1.9 %; HEMOGLOBIN Ao 84.6 %; HEMOGLOBIN LA1C 1.9 %; HEMOGLOBIN P3 3.7 %
[2016-12-17] MEDS: QUEtiapine FUMARATE 25 MG TAB PO SCH ×3 (12:59→20:42)
[2016-12-17 18:00] VITALS: BP 135/68; PULSE 80; RESP 18; TEMP 98.8; O2SAT 98
[2016-12-17 19:50] VITALS: BP 134/68; PULSE 78
[2016-12-17] MEDS: POTASSIUM CHLORIDE 10 MEQ CONTROLLED RELEASE TAB PO SCH (20:42)
[2016-12-17] MEDS: METOPROLOL TARTRATE 25 MG TAB PO SCH (20:42)
[2016-12-17] MEDS: diphenhydrAMINE HCL 50 MG CAP PO PRN (20:43)
[2016-12-18 05:50] VITALS: BP 136/73; PULSE 73; RESP 17; TEMP 98.1; O2SAT 97
[2016-12-18] MEDS ORDERED: FUROSEMIDE 40 MG TAB PO SCH (09:00)
[2016-12-18] MEDS: LISINOPRIL 20 MG TAB PO SCH (10:11)
[2016-12-18] MEDS: LIPASE/PROTEASE/AMYLASE (24,000/76,000/120,000) CAP PO SCH ×3 (10:11→17:00)
[2016-12-18] MEDS: POTASSIUM CHLORIDE 10 MEQ CONTROLLED RELEASE TAB PO SCH ×2 (10:12→21:35)
[2016-12-18] MEDS: RIVAROXABAN 20 MG TAB PO SCH (10:12)
[2016-12-18] MEDS: QUEtiapine FUMARATE 25 MG TAB PO SCH (10:12)
[2016-12-18] MEDS: METOPROLOL TARTRATE 25 MG TAB PO SCH ×2 (10:12→21:35)
[2016-12-18 10:59] LABS: BICARBONATE 27.8 MEQ/L (21.0-32.0); MAGNESIUM 2.1 MG/DL (1.5-2.5)
--- NOTE | 2016-12-18 10:59 | HHI.PYPN ---
Subjective Remarks Patient initially seen by Dr. Nadeem Long his H&P reviewed and agreed with psychiatric admission template filled out by me Patient seen in his room with counselor Chloé. Chart reviewed. Patient compliant medications. Patient sitting calmly in his room is cooperative is somewhat guarded and vigilant. Acknowledges noncompliance medication explaining it somewhat by his transitional living in various friends places sleeping on cultures. He states he developed feelings as if people work snaking in his house hiding under his sofa. He gives that as of the reason for the baseball bat. He is vague about any auditory hallucinations. Though does denies suicidality homicidality. He minimizes his marijuana and cocaine use. Though he does acknowledge being in a detox program at [facility] just last month. Also sad legal issues related to substance related issues. We did discuss medications. We will increase patient Seroquel to 100 mg 3 times a day. Patient also complains of multiple medical issues the hospitalist evaluation is reviewed and agreed with. For now otherwise continue treatment Review of Systems Except as stated in HPI: all other systems reviewed are Neg Objective Alert: Yes [place]: Person, Place, Situation Mood: Anxious, Depressed Affect: Restricted, Other (guarded) Memory Intact: Comment (fair) Hallucinations: Auditory (vague), Tactile (vague) Delusions: Yes Delusion Type: Paranoid Suicidal: Ideation (deny) Homicidal: Ideation (deny) Insight/Judgment Poor Labs Test 12/18/16 09:25 Vitals/IOs Vital Signs Date Time Temp Pulse Resp B/P (MAP) Pulse Ox O2 Delivery O2 Flow Rate FiO2 12/18/16 05:50 98.1 73 17 136/73 (94) 97 12/16/16 13:29 Room Air Assessment & Plan Problem List: (1) Other psychotic disorder not due to a substance or known physiological condition ICD Codes: F28 - Other psychotic disorder not due to a substance or known physiological condition (2) Cocaine abuse ICD Codes: F14.10 - Cocaine abuse, uncomplicated Assessment & Plan Estimated LOS: days patient continues psychotic delusional paranoid. Please medication adjustments above Justification for Cont. Inpt. At this time patient will decompensate the placed in a lower level of care Discharge Planning To be determined Request HC Surrog/Guard Advoc?: No Michael Antonio MD Dec 18, 2016 10:59
[2016-12-18] MEDS ORDERED: ACETAMINOPHEN 325 MG TAB PO PRN (11:00)
[2016-12-18] MEDS: QUEtiapine FUMARATE 100 MG TAB PO SCH ×2 (13:00→17:27)
[2016-12-18 17:50] VITALS: BP 123/66; PULSE 75; RESP 16; TEMP 98.6; O2SAT 98
--- NOTE | 2016-12-18 20:17 | EKG ---
Date Performed: 12/17/2016 Time Performed: 13:20:48 PTAGE: 51 years EKG: Sinus rhythm NONSPECIFIC T-WAVE ABNORMALITY BORDERLINE ECG PREVIOUS TRACING : 11/22/2016 15.14 DOCTOR: Easton Shell Interpretating Date/Time 12/18/2016 20:13:59
[2016-12-18] MEDS: MIRTAZAPINE 15 MG TAB PO SCH (21:35)
[2016-12-19 06:22] VITALS: BP 128/83; PULSE 67; RESP 18; TEMP 98.2; O2SAT 98
[2016-12-19] MEDS: LIPASE/PROTEASE/AMYLASE (24,000/76,000/120,000) CAP PO SCH ×3 (08:00→16:56)
[2016-12-19] MEDS: METOPROLOL TARTRATE 25 MG TAB PO SCH ×2 (09:00→21:11)
[2016-12-19] MEDS: NICOTINE 21 MG/24 HR PATCH T-DERMAL SCH (09:00)
[2016-12-19] MEDS: RIVAROXABAN 20 MG TAB PO SCH (09:42)
[2016-12-19] MEDS: QUEtiapine FUMARATE 100 MG TAB PO SCH ×3 (09:43→18:00)
[2016-12-19] MEDS: POTASSIUM CHLORIDE 10 MEQ CONTROLLED RELEASE TAB PO SCH ×2 (09:43→21:11)
[2016-12-19] MEDS: LISINOPRIL 20 MG TAB PO SCH (09:43)
--- NOTE | 2016-12-19 13:04 | HHI.PYPN ---
Subjective Remarks Patient seen in his room nurse Erik, chart reviewed, patient compliant medication. Patient continues somewhat vigilant acknowledges continued auditory hallucinations but somewhat softer states she is feeling little more "relaxed" he does denies suicidality at this time. For now continue treatment no change hospitalists progress notes reviewed and agreed with. Hospitalists have signed off on this patient medically cleared him for discharge. Review of Systems Except as stated in HPI: all other systems reviewed are Neg Objective Alert: Yes [place]: Person, Place, Situation Mood: Anxious, Depressed Affect: Restricted, Other (guarded) Memory Intact: Comment (fair) Hallucinations: Auditory (vague), Tactile (vague) Delusions: Yes Delusion Type: Paranoid Suicidal: Ideation (deny) Homicidal: Ideation (deny) Insight/Judgment Poor Vitals/IOs Vital Signs Date Time Temp Pulse Resp B/P (MAP) Pulse Ox O2 Delivery O2 Flow Rate FiO2 12/19/16 06:22 98.2 67 18 128/83 (98) 98 12/16/16 13:29 Room Air Assessment & Plan Problem List: (1) Other psychotic disorder not due to a substance or known physiological condition ICD Codes: F28 - Other psychotic disorder not due to a substance or known physiological condition (2) Cocaine abuse ICD Codes: F14.10 - Cocaine abuse, uncomplicated Assessment & Plan Estimated LOS: days patient remained psychotic and depressed though it is somewhat softer. Compliant medications. Justification for Cont. Inpt. With the present time patient will decompensate the placed in a lower level of care Discharge Planning To be determined Request HC Surrog/Guard Advoc?: No Michael Antonio MD Dec 19, 2016 13:04
[2016-12-19] MEDS: LORazepam 1 MG TAB PO PRN (15:54)
[2016-12-19] MEDS ORDERED: diphenhydrAMINE HCL 50 MG CAP PO ONE (17:00)
[2016-12-19] MEDS ORDERED: LORazepam 2 MG TAB PO ONE (17:00)
[2016-12-19] MEDS ORDERED: HALOPERIDOL 10 MG TAB PO ONE (17:00)
[2016-12-19 18:11] VITALS: BP 142/68; PULSE 79; RESP 18; TEMP 98.7; O2SAT 99
[2016-12-19 20:32] VITALS: BP 139/80; PULSE 76
[2016-12-19] MEDS: MIRTAZAPINE 15 MG TAB PO SCH (21:11)
[2016-12-19] MEDS: diphenhydrAMINE HCL 50 MG CAP PO PRN (21:11)
[2016-12-20 05:44] VITALS: BP 110/73; PULSE 76; RESP 18; TEMP 98.2; O2SAT 97
[2016-12-20] MEDS ORDERED: METO25TA3 PO (08:59)
[2016-12-20] MEDS ORDERED: LISI-515 PO (08:59)
[2016-12-20] MEDS ORDERED: QUET1TAB8 PO (08:59)
[2016-12-20] MEDS ORDERED: MIRTA15 PO (08:59)
[2016-12-20] MEDS ORDERED: XARE20TA PO (08:59)
[2016-12-20] MEDS ORDERED: POTA-243 PO (08:59)
[2016-12-20] MEDS ORDERED: CREON24 PO (08:59)
[2016-12-20] MEDS: RIVAROXABAN 20 MG TAB PO SCH (09:00)
[2016-12-20] MEDS: NICOTINE 21 MG/24 HR PATCH T-DERMAL SCH (09:00)
[2016-12-20] MEDS: METOPROLOL TARTRATE 25 MG TAB PO SCH (09:00)
--- NOTE | 2016-12-20 09:07 | HHI.DS ---
Psychiatry Discharge Summary Inpatient Psychiatric care?: Yes Advance Directive: No Mental Health AdvanceDirective: No Health Care Proxy: No Admission Admission Date Dec 16, 2016 at 15:24 Admission Diagnosis: (1) Other psychotic disorder not due to a substance or known physiological condition ICD Code: F28 - Other psychotic disorder not due to a substance or known physiological condition Brief History Mr. Redman is a 51-year-old male with a reported history of bipolar illness who presents under a Lee act from [place] [employer] alleging that the patient had a history of mental illness and was walking around with a bat. Reviewing the electronic medical record, I note that the patient was admitted most recently here under Dr. Siegel 2014. Patient seen and examined with nurse. Chart reviewed. Case discussed with nursing staff. On my examination today, the patient presents as tense and paranoid. He says that he thought that there was someone under the couch or in the closet of the place where he was staying and so he got a baseball bat in order to protect himself. He reports that something similar happened 3 months ago, and at that time he was walking around with a knife. He says that he has been off of his psychotropic medications because he doesn't have a stable place to store them. He does admit to feeling subjectively edgy and paranoid. He denies any audiovisual hallucinations. Denies any suicidal or homicidal ideation. No depressive symptoms. No hypomanic or manic symptoms. No other delusional material. The remainder of the psychiatric ROS is negative. He complains of generalized myalgias but otherwise has no physical complaints. Past psychiatric history: Reports a history of bipolar illness. He reports that he hasn't seen a psychiatrist in 2 months on an outpatient basis. He was at [facility]. He endorses a history of suicide attempt by overdose. Family history: Patient denies any family history of mental illness. Unable dependency history: Patient reports that he uses crack cocaine about every 6 months. He also smokes occasional cannabis. He smokes cigars. Denies any other substance use. Social history: The patient reports that he lives in [place]. He is presently sleeping on someone's couch. He is . At this point, the patient is unable to tolerate further interview and concludes the interview. Tobacco Use In Past 30 Days: Cigars and/or Pipe Daily Alcohol Use: Never Hospital Course Patient had good night last night. The additional oral medication did relieve much of his anxiety helped relieve the voices. He did sleep well last night. Today he states the voices are markedly diminished. He denies suicidality homicidality. He is able contracted to no harm. He is willing to follow-up outpatient mental health services show compliance with his medication. He is been contacted by our [facility] act coordinator for follow-up with their program. Thus I feel at this time patient reached maximum benefit of this hospitalization. Will be discharged today with Rx 1 month [facility] r[facility] Results Blood Pressure 110 / 73 Vital Signs Date Time Temp Pulse Resp B/P (MAP) Pulse Ox O2 Delivery O2 Flow Rate FiO2 12/20/16 05:44 98.2 76 18 110/73 (85) 97 12/16/16 13:29 Room Air Laboratory Tests Test 12/17/16 09:55 12/18/16 09:25 Cholesterol Level 111 MG/DL (120-200) HDL Cholesterol 39.6 MG/DL (40.0-60.0) Estimat Glomerular Filtration Rate 74 ML/MIN (>89) Laboratory Results Test 12/17/16 09:55 Cholesterol Level 111 MG/DL (120-200) HDL Cholesterol 39.6 MG/DL (40.0-60.0) Hemoglobin A1c 6.0 % (4.3-6.0) LDL Cholesterol 47 MG/DL (0-99) Triglycerides Level 120 MG/DL (42-150) Summary of Procedures None done Pending results at discharge: No Medications # of Antipsychotic meds at D/C: 1 Approp Antipsych med options 1 - Minimum of three failed multiple trials of monotherapy. 2 - Documented plan to taper to monotherapy due to previous use of multiple meds OR cross-taper in progress at D/C. 3 - Documentation of augmentation of Clozapine. 4 - Justification other than those listed in allowable values 1-3, document here : Discharge Discharge Date: Dec 20, 2016 Discharge Diagnosis: (1) Other psychotic disorder not due to a substance or known physiological condition Diagnosis: Principal ICD Code: F28 - Other psychotic disorder not due to a substance or known physiological condition Mental Status Exam at Disch Alert oriented heavyset Afro-[place] male calm cooperative with me. He is normally active. He is euthymic to slightly restricted with decreased range and intensity of his affect. Speech rate and rhythm are within normal limits though no formal thought disorders. There continues vague auditory hallucinations though there is non-intrusive nonthreatening. There are no visual hallucinations. No delusions noted. Insight and judgment is poor cognition grossly intact Pt Condition on Discharge: Stable Discharge Disposition: Discharge Home Discharge Instructions Diet Instructions: As Tolerated, No Restrictions Activities you can perform: Regular-No Restrictions Scheduled Appointment: [facility] (also referred to [facility], and referred to [facility] outpatient voluntary substance abuse assessment) Discharge Time > 30 minutes Discharge/Advance Care Plan Health Problems: (1) Other psychotic disorder not due to a substance or known physiological condition (2) Cocaine abuse Goals to promote your health * To prevent worsening of your condition and complications * To maintain your health at the optimal level Directions to meet your goals Take your medications as prescribed Follow your dietary instruction Follow activity as directed Keep your appointments as scheduled Take your immunizations and boosters as scheduled If your symptoms worsen call your PCP, if no PCP go to Urgent Care Center or Emergency Room For 06/11 questions related to your inpatient stay or results of tests pending at discharge, please contact Dr. Michael Antonio at Smoking is Dangerous to Your Health. Avoid second hand smoking Michael Antonio MD Dec 20, 2016 09:07
[2016-12-20] MEDS: QUEtiapine FUMARATE 100 MG TAB PO SCH ×2 (09:43→12:07)
[2016-12-20] MEDS: LISINOPRIL 20 MG TAB PO SCH (09:43)
[2016-12-20] MEDS: LIPASE/PROTEASE/AMYLASE (24,000/76,000/120,000) CAP PO SCH ×2 (09:43→12:00)
[2016-12-20] MEDS: POTASSIUM CHLORIDE 10 MEQ CONTROLLED RELEASE TAB PO SCH (09:43)
[2016-12-20] MEDS: LORazepam 1 MG TAB PO PRN (09:46)
== END 2016-12-20 13:10 | disposition home or self-care (01) | DRG 885 ==
LOC: NEPD 11:13 → NEDA 15:24 → H270 15:49
PROVIDERS: ADMIT Psychiatry & Neurology Psychiatry; ATTEND Psychiatry & Neurology Psychiatry
DX: F28 Other psychotic disorder not due to a substance or known physiological condition (principal); I11.0 Hypertensive heart disease with heart failure; I50.9 Heart failure, unspecified; F14.10 Cocaine abuse, uncomplicated; F31.9 Bipolar disorder, unspecified; Z91.5 Personal history of self-harm; F17.290 Nicotine dependence, other tobacco product, uncomplicated; G89.29 Other chronic pain; Z86.73 Personal history of transient ischemic attack (TIA), and cerebral infarction without residual deficits; Z91.14 Patient's other noncompliance with medication regimen; Z59.0 Homelessness; Z82.49 Family history of ischemic heart disease and other diseases of the circulatory system; E87.6 Hypokalemia; F41.9 Anxiety disorder, unspecified; K44.9 Diaphragmatic hernia without obstruction or gangrene
CPT/HCPCS: 80048; 80053; 80061; 80307; 83036; 83735; 84443; 85025; 85610; 85730; 93005; 99285; Q0163

== ENCOUNTER 2016-12-24 10:26 | Inpatient (IN) | payer MEDICAID, OTHER ==
[~2016-12-24] VITALS: Ht 188 cm; Wt 117.1 kg
[~2016-12-24 10:26] MED LIST changes: +CREON24 PO; -MIRT45TA PO; +MIRTA15 PO; -PANC1CAP9 PO; +QUET1TAB8 PO; +RISP4TAB41 PO
[2016-12-24 10:38] VITALS: BP 124/75; PULSE 85; RESP 16; TEMP 98; O2SAT 98
--- NOTE | 2016-12-24 11:10 | PD ---
HPI Chief Complaint: Psychiatric Symptoms Time Seen by Provider: 10:31 Travel History International Travel<30 days: No Contact w/Intl Traveler<30days: No Traveled to known affect area: No History of Present Illness HPI 51 year old male presents to the emergency department under Lee Act by local police. Patient states he is getting paranoid, hearing voices, and having hallucinations that started last night. He reports history of schizophrenia, CHF, CVA,.HTN. He states he has not taken his medications this weekend. He denies any other medical complaints. PFSH Past Medical History Anxiety: Yes Depression: Yes Cardiovascular Problems: Yes (per pt hypertension, and cardiac problems) Congestive Heart Failure: Yes Cerebrovascular Accident: Yes (CVA X 2) Diminished Hearing: No Gastrointestinal Disorders: Yes (pancreatitis) Hiatal Hernia: Yes Hypertension: Yes Psychiatric: Yes (hx of Schizoaffective DO) Immunizations Current: Yes Pancreatitis: Yes Schizophrenia: Yes ?: Not Past Surgical History Abdominal Surgery: Yes (CHOLECYSTECTOMY) Cholecystectomy: Yes Other Surgery: Yes (CYST REMOVED FROM BUTT) Social History Alcohol Use: No (DENIES ) Tobacco Use: Yes Substance Use: Yes (COCAINE LAST USED 12/23/16) Allergies-Medications (Allergen,Severity, Reaction): Coded Allergies: ibuprofen (Unverified Allergy, Unknown, Hives, 12/16/16) hives Reported Meds & Prescriptions Reported Meds & Active Scripts Active Metoprolol Tartrate 25 Mg Tab 25 Mg PO BID Xarelto (Rivaroxaban) 20 Mg Tab 20 Mg PO DAILY Quetiapine (Quetiapine Fumarate) 100 Mg Tab 100 Mg PO TID Klor-Con 10 (Potassium Chloride) 10 Meq Tab 10 Meq PO BID Creon (Amylase/Lipase/Protease) 24,000-76,000-120,000 Units Cap 4 Cap PO TIDAC Mirtazapine 15 Mg Tab 45 Mg PO HS Lisinopril 20 Mg Tab 20 Mg PO DAILY Reported Risperdal (Risperidone) 4 Mg Tab 4 Mg PO HS Diphenhydramine (Diphenhydramine HCl) 25 Mg Cap 50 Mg PO BID PRN Lorazepam 2 Mg Tab 2 Mg PO BID PRN Haloperidol 5 Mg Tab 5 Mg PO BID PRN Vistaril (Hydroxyzine Pamoate) 50 Mg Cap 50 Mg PO Q4HR PRN Lasix (Furosemide) 40 Mg Tab 40 Mg PO DAILY Ambien (Zolpidem Tartrate) 10 Mg Tab 10 Mg PO HS Abilify (Aripiprazole) 10 Mg Tab 10 Mg PO DAILY Review of Systems Except as stated in HPI: all other systems reviewed are Neg Physical Exam Narrative GENERAL: Well-nourished, well-developed male patient, afebrile. SKIN: Focused skin assessment warm/dry. HEAD: Normocephalic. Atraumatic. EYES: No scleral icterus. No injection or drainage. NECK: Supple, trachea midline. No JVD or lymphadenopathy. CARDIOVASCULAR: Regular rate and rhythm without murmurs, gallops, or rubs. RESPIRATORY: Breath sounds equal bilaterally. No accessory muscle use. Lungs sounds are clear to auscultation GASTROINTESTINAL: Abdomen soft, non-tender, nondistended. MUSCULOSKELETAL: No cyanosis, or edema. PSYCHIATRIC: No delusional thought processes. No hallucinations. Data Data Last Documented VS Vital Signs Date Time Temp Pulse Resp B/P (MAP) Pulse Ox O2 Delivery O2 Flow Rate FiO2 12/24/16 10:38 98.0 85 16 124/75 (91) 98 Orders Orders Complete Blood Count With Diff (12/24/16 10:53) Comprehensive Metabolic Panel (12/24/16 10:53) Psych Screen (12/24/16 10:53) Drug Screen, Random Urine (12/24/16 10:53) Alcohol (Ethanol) (12/24/16 10:53) Diet Regular Basic (12/24/16 Lunch) Labs Laboratory Tests Test 12/24/16 10:50 12/24/16 11:00 Urine Opiates Screen NEG Urine Barbiturates Screen NEG Urine Amphetamines Screen NEG Urine Benzodiazepines Screen NEG Urine Cocaine Screen POS Urine Cannabinoids Screen POS White Blood Count 6.2 TH/MM3 Red Blood Count 4.82 MIL/MM3 Hemoglobin 13.2 GM/DL Hematocrit 40.2 % Mean Corpuscular Volume 83.4 FL Mean Corpuscular Hemoglobin 27.3 PG Mean Corpuscular Hemoglobin Concent 32.7 % Red Cell Distribution Width 15.7 % Platelet Count 241 TH/MM3 Mean Platelet Volume 8.4 FL Neutrophils (%) (Auto) 57.9 % Lymphocytes (%) (Auto) 30.8 % Monocytes (%) (Auto) 8.4 % Eosinophils (%) (Auto) 1.9 % Basophils (%) (Auto) 1.0 % Neutrophils # (Auto) 3.6 TH/MM3 Lymphocytes # (Auto) 1.9 TH/MM3 Monocytes # (Auto) 0.5 TH/MM3 Eosinophils # (Auto) 0.1 TH/MM3 Basophils # (Auto) 0.1 TH/MM3 CBC Comment DIFF FINAL Differential Comment Blood Urea Nitrogen 13 MG/DL Creatinine 1.40 MG/DL Random Glucose 121 MG/DL Total Protein 7.0 GM/DL Albumin 3.6 GM/DL Calcium Level 8.7 MG/DL Alkaline Phosphatase 79 U/L Aspartate Amino Transf (AST/SGOT) 29 U/L Alanine Aminotransferase (ALT/SGPT) 64 U/L Total Bilirubin 0.5 MG/DL Sodium Level 143 MEQ/L Potassium Level 3.6 MEQ/L Chloride Level 110 MEQ/L Carbon Dioxide Level 25.5 MEQ/L Anion Gap 8 MEQ/L Estimat Glomerular Filtration Rate 65 ML/MIN Ethyl Alcohol Level LESS THAN 3 MG/DL MDM Medical Decision Making Medical Screen Exam Complete: Yes Emergency Medical Condition: Yes Medical Record Reviewed: Yes Differential Diagnosis Schizophrenia versus medical clearance versus depression versus anxiety Narrative Course 51-year-old male presents to the emergency Department under Lee act for psychiatric evaluation. CBC, CMP, clubbing, urine drug screen are ordered and pending. CBC is unremarkable. CMP shows elevated creatinine 1.40, glucose 121. UDS is positive for cocaine and cannabinoids. Alcohol level is less than 3. Patient is medically cleared for psychiatric screening and disposition. Mental health screening discussed with the patient. Psychiatric screen ordered. Diagnosis Primary Impression: Cocaine abuse Additional Instructions: Patient is medically cleared for psychiatric screening and disposition. Condition: Stable Rosa Ladd Dec 24, 2016 11:10
[2016-12-24 11:19] LABS: AUTOMATED NEUTROPHIL # 3.6 TH/MM3 (1.8-7.7); BASOPHIL # 0.1 TH/MM3 (0-0.2); EOSINOPHIL # 0.1 TH/MM3 (0-0.4); EOSINOPHIL % 1.9 % (0.0-4.0); HEMATOCRIT 40.2 % (39.0-51.0); HEMO FLAGS DIFF FINAL; LYMPH % 30.8 % (9.0-44.0); LYMPHOCYTE # 1.9 TH/MM3 (1.0-4.8); MEAN CELL VOLUME 83.4 FL (80.0-100.0); MEAN CORPUSCULAR HEMOGLOBIN 27.3 PG (27.0-34.0); MEAN CORPUSCULAR HGB CONC 32.7 % (32.0-36.0); MONO % 8.4 % (0.0-8.0); NEUT % 57.9 % (16.0-70.0); PLATELET COUNT 241 TH/MM3 (150-450); RED BLOOD COUNT 4.82 MIL/MM3 (4.50-5.90); RED CELL DISTRIBUTION WIDTH 15.7 % (11.6-17.2); WHITE BLOOD COUNT 6.2 TH/MM3 (4.0-11.0)
[2016-12-24 11:34] LABS: ANION GAP 8 MEQ/L (5-15); AST (GOT) 29 U/L (15-37); BICARBONATE 25.5 MEQ/L (21.0-32.0); BLOOD UREA NITROGEN 13 MG/DL (7-18); CHLORIDE 110 MEQ/L (98-107); GLOMERULAR FILTRATION RATE 65 ML/MIN (>89); POTASSIUM 3.6 MEQ/L (3.5-5.1); SODIUM (NA) 143 MEQ/L (136-145)
[2016-12-24 11:36] LABS: ALKALINE PHOSPHATASE 79 U/L (45-117); ALT (GPT) 64 U/L (12-78); TOTAL BILIRUBIN ADULT 0.5 MG/DL (0.2-1.0)
[2016-12-24 11:37] LABS: ALCOHOL LESS THAN 3 MG/DL (0-5)
[2016-12-24 15:49] VITALS: BP 136/74; PULSE 84; RESP 18; O2SAT 96
[2016-12-24] MEDS ORDERED: hydrOXYzine HCL 50 MG TAB PO PRN (18:15)
[2016-12-24] MEDS: diphenhydrAMINE HCL 50 MG CAP PO SCH (21:00)
[2016-12-24] MEDS: ZIPRASIDONE HCL 80 MG CAP PO SCH (21:00)
[2016-12-24 23:12] VITALS: BP 117/58; PULSE 85; RESP 20; TEMP 97.4; O2SAT 98
[2016-12-25 02:15] VITALS: BP_SYST 112; BP_SYST 115; BP_DIAS 59; BP_DIAS 63; PULSE 72; PULSE 77; RESP 18; RESP 20; TEMP 97.1; TEMP 98.1; O2SAT 95; O2SAT 96
[2016-12-25 05:06] VITALS: BP 146/97; PULSE 70; RESP 20; TEMP 97.1; O2SAT 99
[2016-12-25] MEDS: ZIPRASIDONE HCL 80 MG CAP PO SCH ×2 (09:00→22:09)
[2016-12-25 11:30] VITALS: BP 134/65; PULSE 78; RESP 18; O2SAT 98
[2016-12-25 14:40] VITALS: BP 110/62; PULSE 76; RESP 20
[2016-12-25] MEDS ORDERED: ALUMINUM/MAGNESIUM/SIMETH 30 ML CUP PO PRN (18:00)
[2016-12-25] MEDS ORDERED: ACETAMINOPHEN 325 MG TAB PO PRN (18:00)
[2016-12-25] MEDS ORDERED: diphenhydrAMINE HCL 50 MG/ML VIAL IM PRN (18:00)
[2016-12-25] MEDS ORDERED: LORazepam 1 MG TAB PO PRN (18:00)
[2016-12-25] MEDS ORDERED: LORazepam 2 MG/ML VIAL IM PRN (18:00)
[2016-12-25] MEDS ORDERED: hydrOXYzine HCL 50 MG TAB PO PRN (18:00)
[2016-12-25] MEDS ORDERED: MAGNESIUM HYDROXIDE SUSP 30 ML CUP PO PRN (18:00)
[2016-12-25] MEDS ORDERED: diphenhydrAMINE HCL 50 MG CAP PO PRN (18:00)
--- NOTE | 2016-12-25 18:05 | HHI.HP ---
Provisional Diagnosis Admission Date [place] I. Chronic paranoid schizophrenia Certification of Person's Competence To Provide Express and Informed Consent I have personally examined Rayray Redman , a person being served at [facility] on, Dec 25, 2016 17:55. Express and informed consent means consent voluntarily given in writing, by a competent person, after sufficient explanation and disclosure of the subject matter involved to enable the person to make a knowing and willful decision without any element of force, fraud, deceit, duress, or other form of constraint or coercion. This person is 18 years of age or older, is not now known to be incompetent to consent to treatment with a guardian advocate, and does not have a health care surrogate or proxy currently making medical treatment decisions. I have found this person to be one of the following: [x] Competent to provide express and informed consent, as defined above, for voluntary admission to this facility and is competent to provide express and informed consent for treatment. He/she has the consistent capacity to make well reasoned, willful, and knowing decisions concerning his or her medical or mental health treatment. The person fully and consistently understands the purpose of the admission for examination/placement and is fully capable of personally exercising all rights assured [place] [] Incompetent to provide express and informed consent to voluntary admission, and this is incompetent to provide express and informed consent to treatment. The person must be transferred to involuntary status and a petition for a guardian advocate filed with the Circuit Court. [] Refusing to provide express and informed consent to voluntary admission but is competent to provide express and informed consent for treatment. The person must be discharged or transferred to involuntary status. Form shall be completed within 24 hours of a person's arrival at the receiving facility and filed in the clinical record of each person: 1. Admitted on a voluntary basis 2. Permitted to provide express and informed consent to his/her own treatment 3. Allowed to transfer from involuntary to voluntary status 4. Prior to permitting a person to consent to his or her own treatment after having been previously found incompetent to consent to treatment. History of Present Illness Capacity: Has Capacity HPI 51-year-old male with self-admitted multiyear history of paranoid schizophrenia brought in under a Lee act for psychotic symptoms and suicidality. Patient told the lawyer probate that he was hearing voices and that he becomes violent and is unsure what he may do if the voices get worse. He reported to law enforcement that his medications were not working. However, he presented to this emergency department with a bag full of unused medications. The patient had also been staying at [facility] and advised the director transition that he needed help or he would likely harm himself or someone else. Upon interview, the patient does report auditory hallucinations. These hallucinations are generally critical of him and tell him that "they" are out to get him. He does feel paranoid in general and was carrying a knife to protect himself. However the director transition at the [facility] convinced him to relinquish the knife. Patient still feels he is going to be jumped by some unknown person or persons. He feels that someone is trying to kill him. He does remark he feels people are trying to jump through the window to get to him. Finally, he is currently homeless. He was seeing Dr. Jang and Josephine Phelps. He moved up here 2 months ago and feels this is where he wants to live even though he has no home. He was admitted to [facility] approximately a week or 2 ago. He states he gets a Social Security check every month. He is positive for cocaine and marijuana and states he was given cocaine on the street. Review of Systems Except as stated in HPI: all other systems reviewed are Neg Past Psych History Psychological trauma history Denies psychological trauma but many inpatient and outpatient visits for diagnosis of schizophrenia. Violence risk - others (6 mos) Moderate to high. Violence risk - self (6 mos) Moderate to high. Substance Abuse History Drugs/Alcohol past 12 months Patient does abuse alcohol, cannabis and apparently cocaine. Past Family Social History Coded Allergies: ibuprofen (Unverified Allergy, Unknown, Hives, 12/16/16) hives Active Scripts Metoprolol Tartrate (Metoprolol Tartrate) 25 Mg Tab, 25 MG PO BID for health, # 60 TAB 0 Refills Prov:Michael Antonio MD 12/20/16 Rivaroxaban (Xarelto) 20 Mg Tab, 20 MG PO DAILY for health, #30 TAB 0 Refills Prov:Michael Antonio MD 12/20/16 Quetiapine (Quetiapine) 100 Mg Tab, 100 MG PO TID for health, #90 TAB 0 Refills Prov:Michael Antonio MD 12/20/16 Potassium Chloride ER (Klor-Con 10) 10 Meq Tab, 10 MEQ PO BID for health, #60 TAB 0 Refills Prov:Michael Antonio MD 12/20/16 Pancrelipase (Creon) 24,000-76,000-120,000 Units Cap, 4 CAP PO TIDAC for health , #90 CAP 0 Refills Prov:Michael Antonio MD 12/20/16 Mirtazapine (Mirtazapine) 15 Mg Tab, 45 MG PO HS for health, #30 TAB 0 Refills Prov:Michael Antonio MD 12/20/16 Lisinopril (Lisinopril) 20 Mg Tab, 20 MG PO DAILY for health, #30 TAB 0 Refills Prov:Michael Antonio MD 12/20/16 Reported Medications Risperidone (Risperdal) 4 Mg Tab, 4 MG PO HS, #30 TAB 0 Refills 12/17/16 Diphenhydramine (Diphenhydramine) 25 Mg Cap, 50 MG PO BID Y for AGITATION, CAP 0 Refills 11/22/16 Lorazepam (Lorazepam) 2 Mg Tab, 2 MG PO BID Y for AGITATION, TAB 0 Refills 11/22/16 Haloperidol (Haloperidol) 5 Mg Tab, 5 MG PO BID Y for AGITATION, TAB 0 Refills 11/22/16 Hydroxyzine Pamoate (Vistaril) 50 Mg Cap, 50 MG PO Q4HR Y for ANXIETY, CAP 0 Refills 11/22/16 Furosemide (Lasix) 40 Mg Tab, 40 MG PO DAILY, #30 TAB 0 Refills 11/22/16 Zolpidem (Ambien) 10 Mg Tab, 10 MG PO HS for INSOMNIA, TAB 0 Refills 11/22/16 Aripiprazole (Abilify) 10 Mg Tab, 10 MG PO DAILY, #30 TAB 0 Refills 11/22/16 Discontinued Reported Medications Mirtazapine (Mirtazapine) 45 Mg Tab, 45 MG PO HS for Depression Control, #30 TAB 0 Refills 11/22/16 Metoprolol Tartrate (Metoprolol Tartrate) 25 Mg Tab, 25 MG PO BID, #60 TAB 0 Refills 11/22/16 Lisinopril (Lisinopril) 20 Mg Tab, 20 MG PO DAILY, #30 TAB 0 Refills 11/22/16 Potassium Chloride ER (Klor-Con 10) 10 Meq Tab, 10 MEQ PO BID for Electrolyte Replacement, #60 TAB 0 Refills 11/22/16 Pancrelipase (Zenpep) 40,000-136,000-218,000 Units Cap, 2 CAP PO TIDAC for Digestive Aid, #90 CAP 0 Refills 11/22/16 Rivaroxaban (Xarelto) 20 Mg Tab, 20 MG PO DAILY for Blood Clot Prevention, TAB 0 Refills 11/22/16 Current Medications Medications (Trade) Dose Ordered Sig/Alia Route Start Time Stop Time Status Last Admin (Geodon) 80 mg BID PO 12/24/16 21:00 12/25/16 09:00 (Atarax) 50 mg Q6H PRN PO 12/24/16 18:15 (Benadryl) 50 mg HS PO 12/24/16 21:00 Family History Patient does not know his family's mental health history. Social History Unemployed. Does abuse drugs at times. States he receives Social Security disability. Apparently has been noncompliant with treatment in the past. Comes from [facility]. Patient's Strengths (min. 2) Verbal and has access to healthcare. Physical Exam GENERAL: SKIN: Warm and dry. HEAD: Normocephalic. EYES: No scleral icterus. No injection or drainage. NECK: Supple, trachea midline. No JVD or lymphadenopathy. CARDIOVASCULAR: Regular rate and rhythm without murmurs, gallops, or rubs. RESPIRATORY: Breath sounds equal bilaterally. No accessory muscle use. GASTROINTESTINAL: Abdomen soft, non-tender, nondistended. MUSCULOSKELETAL: No cyanosis, or edema. BACK: Nontender without obvious deformity. No CVA tenderness. Vital Signs Vital Signs Date Time Temp Pulse Resp B/P (MAP) Pulse Ox O2 Delivery O2 Flow Rate FiO2 12/25/16 14:40 76 20 110/62 (78) Room Air 12/25/16 11:30 98 12/25/16 05:06 97.1 Mental Status Examination Speech: Hesitant Orientation: x3 Memory: Unremarkable Thought Process: Circumstantial, Tangential Thought Content: Bizarre thinking, Paranoid Hallucination Type: Auditory Attention and Concentration: Abnormal Suicidal Ideation: Yes Previous Suicide Attempts: Yes Homicidal Ideation: No Previous Homicide Attempts: No Insight: Fair Judgment: Unrealistic Affect: Anxious Mood: Anxious Motor Activity: Normal gait Assessment & Plan Problem List: (1) Schizophrenia, paranoid, chronic ICD Codes: F20.0 - Paranoid schizophrenia Assessment & Plan Estimated LOS: days because of the patient's history of schizophrenia with recent noncompliance with medications, illicit drug use and auditory hallucinations with suicidality, this physician feels the patient is at high risk for self-harm. For this reason he will be admitted for evaluation and treatment. Patient is unable to contract for safety. This physician has ordered a complete blood count and comprehensive metabolic panel to determine if any infectious process or metabolic process is causing or contributing to his psychosis. This will also include a thyroid stimulating hormone level, vitamin B-12 level and vitamin D level. He will also have an EKG to determine his cardiac conduction status prior to changing his antipsychotic to Abilify. This physician feels the patient is a candidate for long-acting injectable antipsychotic medication, due to his noncompliance in the past. This physician spoke with the patient's nurse regarding his recent behavior and drug abuse. She feels there is a element of malingering but also describes the patient has strange in his behavior. This physician will also ask case management to get involved for information gathering and disposition planning. Jones Hines MD Dec 25, 2016 18:05
[2016-12-25] MEDS ORDERED: LORazepam 2 MG TAB PO PRN (18:15)
[2016-12-25 18:45] VITALS: BP 142/85; PULSE 70; RESP 18
[2016-12-25 19:50] VITALS: BP 142/93; PULSE 80; RESP 16; TEMP 98.2; O2SAT 80
[2016-12-25] MEDS ORDERED: ABILIFY MAINTENA 400 MG IM ONE (21:00)
[2016-12-25] MEDS: diphenhydrAMINE HCL 50 MG CAP PO SCH (22:09)
[2016-12-25] MEDS: METOPROLOL TARTRATE 25 MG TAB PO SCH (22:09)
[2016-12-25] MEDS: MIRTAZAPINE 15 MG TAB PO SCH (22:09)
[2016-12-25] MEDS: POTASSIUM CHLORIDE 10 MEQ CONTROLLED RELEASE TAB PO SCH (22:09)
[2016-12-26 06:00] VITALS: BP 125/81; PULSE 67; RESP 16; TEMP 98.1; O2SAT 99
--- NOTE | 2016-12-26 08:51 | HHI.PYPN ---
Subjective Remarks Patient seen and examined with nurse. Chart reviewed. Case discussed with nursing staff. On my exam, patient reports that his main concern is obtaining housing. He says he was experiencing vague VH earlier this morning but denies any AVH at this time. Denies any SI or HI. Says that he has taken Abilify for several years in the past with good tolerability of this agent, and I note Dr. Hines has ordered Maintena, and the patient is agreeable to receiving this. Says that he usually takes more than one antipsychotic at a time, and I note patient is also on Geodon. Denies side effects from medications. Patient feels like current med regimen is adequate. No physical complaints. Requesting double portions. Agreeable to sign voluntary. Review of Systems Except as stated in HPI: all other systems reviewed are Neg Objective Alert: Yes [place]: Person, Place, Date, Situation Mood: Calm Affect: Appropriate Memory Intact: Comment (Intact) Hallucinations: Other (Denies AVH) Delusions: No Delusion Type: Other (Perhaps some mild residual guardedness but no other delusions) Suicidal: Ideation (Denies SI) Homicidal: Ideation (Denies HI) Insight/Judgment Poor Remarks No motor abnormalities noted. Thought process linear. Grooming and hygiene good. Labs Labs reviewed. Mildly decreased GFR, within historical range for patient. Toxicology positive for cocaine and cannabinoids. Vitals/IOs Vital Signs Date Time Temp Pulse Resp B/P (MAP) Pulse Ox O2 Delivery O2 Flow Rate FiO2 12/26/16 06:00 98.1 67 16 125/81 (96) 99 12/25/16 14:40 Room Air Assessment & Plan Problem List: (1) Other psychotic disorder not due to a substance or known physiological condition ICD Codes: F28 - Other psychotic disorder not due to a substance or known physiological condition (2) Cocaine abuse ICD Codes: F14.10 - Cocaine abuse, uncomplicated (3) Cannabis abuse ICD Codes: F12.10 - Cannabis abuse, uncomplicated Assessment & Plan Suspect substance use is either primary emergency vehicle driver of main precipitating factor of patient's symptoms, although there may also be a component of malingering for retirement or to obtain geriatric social worker. Continue Geodon as ordered. Abilify Maintena administered today. Discontinue oral Abilify as Geodon will likely be sufficient to manage symptoms while blood levels of Maintena come up. Hospitalist input noted and appreciated. Continue to monitor on the inpatient unit. Continue other medications and care as ordered. Patient may sign voluntary. Justification for Cont. Inpt. med changes. Risk for decompensation. Discharge Planning Anticipate discharge later this week. Counselor to see to assist in dispo planning. Request HC Surrog/Guard Advoc?: No Nadeem Long MD Dec 26, 2016 08:51
[2016-12-26] MEDS ORDERED: ABILIFY MAINTENA 400 MG IM ONE (09:00)
[2016-12-26] MEDS: FUROSEMIDE 40 MG TAB PO SCH ×2 (09:00→10:37)
[2016-12-26] MEDS: ARIPiprazole 10 MG TAB PO SCH ×2 (09:00→10:36)
--- NOTE | 2016-12-26 10:21 | PD.CONS ---
HPI Service [facility] Hospitalists Consult Requested By Dr. Hines Reason for Consult Numbness in hand Primary Care Physician No Primary Care Physician Diagnoses: (1) Schizoaffective disorder (2) Numbness of fingers (3) Cocaine abuse History of Present Illness Mr. Redman is a 51-year-old male patient with a known medical history of schizoaffective disorder, chronic pancreatitis, HTN, CHF and history of stroke x 2 who presented to the ED under Lee act with presence of paranoia and auditory hallucinations. Hospitalist team has been consulted for complaint of left hand numbness. Patient states that he has been having auditory hallucinations and increasing paranoia desiring to come in to get treatment. He states that he has been noncompliant with his medications lately due to forgetfulness. Denies any recent illness including fever, chills, cough, shortness of breath, nausea, vomiting, diarrhea or dysuria. Patient states he suffers from chronic pancreatitis with complaint of frequent abdominal discomfort. Patient also complains of numbness in his left fingertips, starting roughly 2 months ago. Constant in nature. Denies history of diabetes or neuropathy. Hemoglobin A1c drawn 12/31 and was 6.0 at the time. Review of Systems Constitutional: DENIES: Fever, Chills Respiratory: DENIES: Cough, Shortness of breath Cardiovascular: DENIES: Chest pain Gastrointestinal: DENIES: Abdominal pain, Constipation, Diarrhea, Nausea, Vomiting Neurologic: COMPLAINS OF: Paresthesias (left fingertip numbness) Psychiatric: COMPLAINS OF: Mood changes, Hallucinations Except as stated in HPI: all other systems reviewed are Neg Past Family Social History Allergies: Coded Allergies: ibuprofen (Unverified Allergy, Unknown, Hives, 12/16/16) hives Past Medical History Anxiety Depression Hypertension CVA x 2 Chronic pancreatitis Hiatal hernia Schizoaffective disorder Hiatal hernia Past Surgical History Cholecystectomy Pilonidal cyst removal Pancreatic stent Reported Medications Active Metoprolol Tartrate 25 Mg Tab 25 Mg PO BID Xarelto (Rivaroxaban) 20 Mg Tab 20 Mg PO DAILY Quetiapine (Quetiapine Fumarate) 100 Mg Tab 100 Mg PO TID Klor-Con 10 (Potassium Chloride) 10 Meq Tab 10 Meq PO BID Creon (Amylase/Lipase/Protease) 24,000-76,000-120,000 Units Cap 4 Cap PO TIDAC Mirtazapine 15 Mg Tab 45 Mg PO HS Lisinopril 20 Mg Tab 20 Mg PO DAILY Reported Risperdal (Risperidone) 4 Mg Tab 4 Mg PO HS Diphenhydramine (Diphenhydramine HCl) 25 Mg Cap 50 Mg PO BID PRN Lorazepam 2 Mg Tab 2 Mg PO BID PRN Haloperidol 5 Mg Tab 5 Mg PO BID PRN Vistaril (Hydroxyzine Pamoate) 50 Mg Cap 50 Mg PO Q4HR PRN Lasix (Furosemide) 40 Mg Tab 40 Mg PO DAILY Ambien (Zolpidem Tartrate) 10 Mg Tab 10 Mg PO HS Abilify (Aripiprazole) 10 Mg Tab 10 Mg PO DAILY Active Ordered Medications Current Medications Medications (Trade) Dose Ordered Sig/Alia Route Start Time Stop Time Status Last Admin (Geodon) 80 mg BID PO 12/24/16 21:00 12/25/16 22:09 (Atarax) 50 mg Q6H PRN PO 12/24/16 18:15 (Benadryl) 50 mg HS PO 12/24/16 21:00 12/25/16 22:09 (Ativan) 1 mg Q6H PRN PO 12/25/16 18:00 (Ativan Inj) 1 mg Q6H PRN IM 12/25/16 18:00 (Benadryl) 50 mg Q6H PRN PO 12/25/16 18:00 (Benadryl Inj) 50 mg Q6H PRN IM 12/25/16 18:00 (Tylenol) 650 mg Q4H PRN PO 12/25/16 18:00 (Milk Of Magnesia Liq) 30 ml DAILY PRN PO 12/25/16 18:00 (Mag-Al Plus Susp Liq) 30 ml Q6H PRN PO 12/25/16 18:00 (Atarax) 50 mg Q6H PRN PO 12/25/16 18:00 (Abilify) 10 mg DAILY PO 12/25/16 19:00 (Lasix) 40 mg DAILY PO 12/25/16 19:00 (Vistaril) 50 mg Q4HR PRN PO 12/25/16 18:15 (Prinivil) 20 mg DAILY PO 12/26/16 09:00 (Ativan) 2 mg BID PRN PO 12/25/16 18:15 (Lopressor) 25 mg BID PO 12/25/16 21:00 12/25/16 22:09 (Remeron) 45 mg HS PO 12/25/16 21:00 12/25/16 22:09 (Creon 24-76-120) 4 cap TIDAC PO 12/26/16 08:00 (KCl) 10 meq BID PO 12/25/16 21:00 12/25/16 22:09 (Xarelto) 20 mg DAILY PO 12/26/16 09:00 Family History Maternal medical history significant for cardiovascular disease. Paternal medical history significant for DM, HTN and chronic anemia. Social History Patient admits to smoking 3 cigars a day for most of his adult life. Admits to occasional alcohol use. Admits to using cocaine roughly every 6 months, states he goes on a binge when he runs out of his medications. Physical Exam Vital Signs Vital Signs Date Time Temp Pulse Resp B/P (MAP) Pulse Ox O2 Delivery O2 Flow Rate FiO2 12/26/16 06:00 98.1 67 16 125/81 (96) 99 12/25/16 19:50 98.2 80 16 142/93 (109) 80 12/25/16 19:26 12/25/16 18:45 70 18 142/85 (104) 12/25/16 14:40 76 20 110/62 (78) Room Air 12/25/16 11:30 78 18 134/65 (88) 98 Room Air Physical Exam GENERAL: This is a well-nourished, well-developed male patient, lying in bed in no apparent distress. SKIN: No rashes, ecchymoses or lesions. Warm and dry. HEENT: Atraumatic. Normocephalic. Pupils equal round and reactive. Extraocular motions intact. No scleral icterus. No injection or drainage. Nose without bleeding. Airway patent. NECK: Trachea midline. No JVD. Supple. CARDIOVASCULAR: Regular rate and rhythm without murmurs, gallops, or rubs. RESPIRATORY: Clear to auscultation. Breath sounds equal bilaterally. No wheezes , rales, or rhonchi. GASTROINTESTINAL: Abdomen soft, non-tender, nondistended. No guarding. MUSCULOSKELETAL: Extremities without clubbing, cyanosis, or edema. No joint tenderness, effusion, or edema noted. NEUROLOGICAL: Awake and alert. Cranial nerves II through XII intact. Motor and sensory grossly within normal limits. Five out of 5 muscle strength in all muscle groups. Normal speech. Cap refill < 3seconds. Result Diagram: 12/24/16 1100 12/24/16 1100 Assessment and Plan Assessment and Plan Mr. Redman is a 51-year-old male patient with a known medical history of schizoaffective disorder, chronic pancreatitis, HTN, CHF and history of stroke x 2 who presented to the ED under Lee act with presence of paranoia and auditory hallucinations. Hospitalist team has been consulted for complaint of left hand numbness. Schizoaffective disorder - Management per psychiatry team. - Current regimen Geodon, Hydroxyzine, Abilify Numbness in left fingers: Will order cervical spine x-ray all views as well as head CT. Follow for results. Will also add PT and OT, appreciate recommendations. Hypertension, chronic: Continue home Lisinopril. Monitor BPs. Congestive heart failure, unknown type: Continue Lasix 40 mg PO daily. History of CVA x 2: Continue home Xarelto Tobacco abuse: Encouraged cessation. Cocaine abuse: Encouraged cessation. Vitamin d deficiency: Level 9.6. [address] on weekly supplementation. DVT prophylaxis: Ambulation/Xarelto The exam, history, and the medical decision-making described in the above note were completed with the assistance of the mid-level provider. I reviewed and agree with the findings presented. I attest that I had a [id number] encounter with the patient on the same day, and personally performed and documented my assessment and findings in the medical record. 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 Extraocular motions intact. No scleral icterus. ENT: Nose without bleeding, or drainage, Airway patent. NECK: Trachea midline. Supple CARDIOVASCULAR: Regular rate and rhythm without murmurs, gallops, or rubs. RESPIRATORY: Fair air entry bilaterally. No wheezes, rales, or rhonchi. GASTROINTESTINAL: Abdomen soft, non-tender, nondistended. Positive bowel sounds MUSCULOSKELETAL: Extremities without clubbing, cyanosis, or edema. Pedal pulses appreciated I agreed with the above, reviewed CT scan of the head was unremarkable, cervical spine showed:Multilevel degenerative spondylosis most prominently C5/7 with moderate to severe left bone neural foraminal narrowing C5-C6 and mild to moderate bilateral neural foraminal narrowing C6-C7 which most likely The cause of the patient's symptom, recommending PT OT, if not improving patient advised to follow up with his PCP for neurosurgery referral Agree with vitamin D replacement Thank you for this consultation Frieda Cardenas Dec 26, 2016 10:21 Lisa Yen MD Dec 26, 2016 17:50
[2016-12-26] MEDS: ZIPRASIDONE HCL 80 MG CAP PO SCH ×2 (10:36→21:28)
[2016-12-26] MEDS: POTASSIUM CHLORIDE 10 MEQ CONTROLLED RELEASE TAB PO SCH ×2 (10:36→21:28)
[2016-12-26] MEDS: LIPASE/PROTEASE/AMYLASE (24,000/76,000/120,000) CAP PO SCH ×3 (10:36→17:00)
[2016-12-26] MEDS: LISINOPRIL 20 MG TAB PO SCH (10:37)
[2016-12-26] MEDS: RIVAROXABAN 20 MG TAB PO SCH (10:37)
[2016-12-26] MEDS: METOPROLOL TARTRATE 25 MG TAB PO SCH ×2 (10:37→19:03)
--- NOTE | 2016-12-26 13:47 | RADRPT ---
EXAM DATE/TIME: 12/26/2016 13:30 [facility] COMPARISON: No previous studies available for comparison. INDICATIONS : Bilateral finger numbness. RADIATION DOSE: 39.74 CTDIvol (mGy) MEDICAL HISTORY : Cerebrovascular disease. Congestive heart failure. Pancreatitis.Hypertension. SURGICAL HISTORY : None. ENCOUNTER: Initial ACUITY: 1 day PAIN SCALE: 0/10 LOCATION: cranial TECHNIQUE: Multiple contiguous axial images were obtained of the head. Using automated exposure control and adj ustment of the mA and/or kV according to patient size, radiation dose was kept as low as reasonably a chievable to obtain optimal diagnostic quality images. DICOM format image data is available electro nically for review and comparison. FINDINGS: CEREBRUM: The ventricles are normal for age. No evidence of midline shift, mass lesion, hemorrhage or acute in farction. No extra-axial fluid collections are seen. POSTERIOR FOSSA: The cerebellum and brainstem are intact. The 4th ventricle is midline. The cerebellopontine angle i s unremarkable. EXTRACRANIAL: The visualized portion of the orbits is intact. SKULL: The calvaria is intact. No evidence of skull fracture. CONCLUSION: No acute disease. Jermaine Leigh MD on December 26, 2016 at 13:45 Board Certified Radiologist. This report was verified electronically.
--- NOTE | 2016-12-26 13:53 | RADRPT ---
EXAM DATE/TIME: 12/26/2016 13:11 [facility] COMPARISON: No previous studies available for comparison. INDICATIONS : Neck pain & hand numbness. MEDICAL HISTORY : Congestive heart failure. Pancreatitis. Gastroesophageal reflux disease. Stroke. Seizures. Hypert ension. Hiatial hernia. Arthritis. SURGICAL HISTORY : Cholecystectomy. Stent in pancreas. ENCOUNTER: Initial ACUITY: 3 days PAIN SCORE: 6/10 LOCATION: cervical spine FINDINGS: Five view examination was performed. There is loss of normal cervical lordosis. Sagittal images other callahan maintained. No evidence of fracture or subluxation. Vertebral body height is normal. The mult ilevel degenerative spondylosis with disc space narrowing and osteophyte formation most prominently a t C5-C7. There is moderate to severe left bony neural foraminal narrowing at C5-6 and mild to moderat e neural foraminal narrowing bilaterally at C6-7. The prevertebral soft tissues are of normal thickne ss. The atlanto-axial articulation is intact. CONCLUSION: 1. Multilevel degenerative spondylosis most prominently at C5-7 with moderate to severe left bony raisa ral foraminal narrowing at C5-6 and [id number] bilateral neural foraminal narrowing at C6-7. 2. No acute fracture or subluxation. Kevin Dye MD on December 26, 2016 at 13:48 Board Certified Radiologist. This report was verified electronically.
[2016-12-26 14:14] LABS: ANION GAP 9 MEQ/L (5-15); AST (GOT) 17 U/L (15-37); BICARBONATE 23.9 MEQ/L (21.0-32.0); BLOOD UREA NITROGEN 11 MG/DL (7-18); CHLORIDE 103 MEQ/L (98-107); GLOMERULAR FILTRATION RATE 73 ML/MIN (>89); POTASSIUM 3.8 MEQ/L (3.5-5.1); SODIUM (NA) 136 MEQ/L (136-145)
[2016-12-26 14:16] LABS: ALT (GPT) 51 U/L (12-78)
[2016-12-26 14:42] LABS: ALKALINE PHOSPHATASE 89 U/L (45-117); HDL CHOLESTEROL 38.7 MG/DL (40.0-60.0); LDL CHOLESTEROL 51 MG/DL (0-99); TOTAL BILIRUBIN ADULT 0.2 MG/DL (0.2-1.0)
[2016-12-26 16:05] LABS: HEMOGLOBIN A1a 1.4 %; HEMOGLOBIN A1b 1.9 %; HEMOGLOBIN Ao 84.6 %; HEMOGLOBIN P3 3.6 %
[2016-12-26 18:00] VITALS: BP 166/100; PULSE 70; RESP 17; TEMP 97.9; O2SAT 97
[2016-12-26] MEDS ORDERED: ERGOCALCIFEROL (VIT D2) 50,000 UNIT CAP PO SCH (18:00)
[2016-12-26 20:30] VITALS: BP 126/68; PULSE 68; RESP 16; TEMP 99.3; O2SAT 97
[2016-12-26] MEDS: MIRTAZAPINE 15 MG TAB PO SCH (21:28)
[2016-12-26] MEDS: diphenhydrAMINE HCL 50 MG CAP PO SCH (21:28)
[2016-12-27 05:20] VITALS: BP 123/74; PULSE 71; RESP 20; TEMP 98; O2SAT 97
[2016-12-27] MEDS: ZIPRASIDONE HCL 80 MG CAP PO SCH ×2 (09:29→17:36)
[2016-12-27] MEDS: LIPASE/PROTEASE/AMYLASE (24,000/76,000/120,000) CAP PO SCH ×3 (09:29→17:00)
[2016-12-27] MEDS: FUROSEMIDE 40 MG TAB PO SCH (09:29)
[2016-12-27] MEDS: LISINOPRIL 20 MG TAB PO SCH (09:30)
[2016-12-27] MEDS: POTASSIUM CHLORIDE 10 MEQ CONTROLLED RELEASE TAB PO SCH ×2 (09:30→21:25)
[2016-12-27] MEDS: RIVAROXABAN 20 MG TAB PO SCH (09:30)
[2016-12-27] MEDS: METOPROLOL TARTRATE 25 MG TAB PO SCH ×2 (09:30→21:24)
--- NOTE | 2016-12-27 10:07 | HHI.PYPN ---
Subjective Remarks Patient seen and examined with counselor and nurse. Chart reviewed. Case discussed with nurse. On my exam, patient reports some low mood along with associated hopeless/worthless feelings. Denies low energy, sleep/appetite disturbance, impaired concentration. Denies SI/HI. No psychotic symptoms at this time. Denies side effects from medications. No physical complaints. Review of Systems Except as stated in HPI: all other systems reviewed are Neg Objective Alert: Yes [place]: Person, Place, Date, Situation Mood: Depressed Affect: Blunted Memory Intact: Comment (Intact) Hallucinations: Other (No AVH) Delusions: No Delusion Type: Other (No delusions) Suicidal: Ideation (Denies suicidal ideation) Homicidal: Ideation (Denies homicidal ideation) Insight/Judgment Poor Remarks No motor abnormalities noted. Labs Test 12/26/16 13:02 Blood Urea Nitrogen 11 MG/DL Creatinine 1.26 MG/DL Random Glucose 138 MG/DL Total Protein 6.8 GM/DL Albumin 3.5 GM/DL Calcium Level 8.5 MG/DL Alkaline Phosphatase 89 U/L Aspartate Amino Transf (AST/SGOT) 17 U/L Alanine Aminotransferase (ALT/SGPT) 51 U/L Total Bilirubin 0.2 MG/DL Sodium Level 136 MEQ/L Potassium Level 3.8 MEQ/L Chloride Level 103 MEQ/L Carbon Dioxide Level 23.9 MEQ/L Anion Gap 9 MEQ/L Estimat Glomerular Filtration Rate 73 ML/MIN Hemoglobin A1c 6.0 % Triglycerides Level 238 MG/DL Cholesterol Level 137 MG/DL LDL Cholesterol 51 MG/DL HDL Cholesterol 38.7 MG/DL Cholesterol/HDL Ratio 3.54 RATIO Vitamin B12 Level 236 PG/ML 25-Hydroxy Vitamin D Total 9.6 ng/ML Thyroid Stimulating Hormone 3rd Gen 1.080 uIU/ML Labs reviewed. GFR improved. Vitamin D level low, and patient has been started on Vitamin D replacement. Vitals/IOs Vital Signs Date Time Temp Pulse Resp B/P (MAP) Pulse Ox O2 Delivery O2 Flow Rate FiO2 12/27/16 05:20 98.0 71 20 123/74 (90) 97 12/25/16 14:40 Room Air Assessment & Plan Problem List: (1) Other psychotic disorder not due to a substance or known physiological condition ICD Codes: F28 - Other psychotic disorder not due to a substance or known physiological condition (2) Cocaine abuse ICD Codes: F14.10 - Cocaine abuse, uncomplicated (3) Cannabis abuse ICD Codes: F12.10 - Cannabis abuse, uncomplicated Assessment & Plan Patient with likely non-adherence to medications as he presented to ED with bag of unused meds per notes, and so adjusting antidepressant to try to improve mood likely not necessary; rather, we need to give more time for current meds to work. There may also be a component of cocaine-withdrawal dysphoria. I have adjusted Geodon dosing to be with meals. Continue to monitor on the inpatient unit. Continue other medications and care as ordered. Justification for Cont. Inpt. Risk for decompensation Discharge Planning Anticipate discharge by the end of the week Request HC Surrog/Guard Advoc?: No Nadeem Long MD Dec 27, 2016 10:07
[2016-12-27 11:42] LABS: AUTOMATED NEUTROPHIL # 2.5 TH/MM3 (1.8-7.7); BASOPHIL % 0.9 % (0.0-2.0); EOSINOPHIL # 0.1 TH/MM3 (0-0.4); EOSINOPHIL % 2.2 % (0.0-4.0); HEMATOCRIT 42.2 % (39.0-51.0); HEMO FLAGS DIFF FINAL; LYMPH % 38.4 % (9.0-44.0); MEAN CELL VOLUME 83.3 FL (80.0-100.0); MEAN CORPUSCULAR HEMOGLOBIN 27.4 PG (27.0-34.0); MEAN CORPUSCULAR HGB CONC 32.8 % (32.0-36.0); MONO % 10.3 % (0.0-8.0); NEUT % 48.2 % (16.0-70.0); PLATELET COUNT 221 TH/MM3 (150-450); RED BLOOD COUNT 5.06 MIL/MM3 (4.50-5.90); RED CELL DISTRIBUTION WIDTH 14.8 % (11.6-17.2); WHITE BLOOD COUNT 5.3 TH/MM3 (4.0-11.0)
[2016-12-27] MEDS: diphenhydrAMINE HCL 50 MG CAP PO SCH (21:24)
[2016-12-27] MEDS: MIRTAZAPINE 15 MG TAB PO SCH (21:25)
--- NOTE | 2016-12-27 21:50 | EKG ---
Date Performed: 12/26/2016 Time Performed: 14:23:53 PTAGE: 51 years EKG: Sinus rhythm NORMAL ECG PREVIOUS TRACING : 12/17/2016 13.20 Compared to prior tracing no significant change DOCTOR: Zenon Heredia Interpretating Date/Time 12/27/2016 21:50:12
[2016-12-28 05:34] VITALS: BP 119/62; PULSE 71; RESP 17; TEMP 97.9; O2SAT 98
[2016-12-28] MEDS: ZIPRASIDONE HCL 80 MG CAP PO SCH ×2 (09:00→17:42)
[2016-12-28] MEDS: LIPASE/PROTEASE/AMYLASE (24,000/76,000/120,000) CAP PO SCH ×3 (09:00→18:04)
[2016-12-28] MEDS: LISINOPRIL 20 MG TAB PO SCH (09:00)
[2016-12-28] MEDS: POTASSIUM CHLORIDE 10 MEQ CONTROLLED RELEASE TAB PO SCH ×2 (09:01→21:17)
[2016-12-28] MEDS: RIVAROXABAN 20 MG TAB PO SCH (09:01)
[2016-12-28] MEDS: FUROSEMIDE 40 MG TAB PO SCH (09:01)
[2016-12-28] MEDS: METOPROLOL TARTRATE 25 MG TAB PO SCH ×2 (09:01→21:17)
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
[2016-12-28 16:49] VITALS: BP 128/83; PULSE 68; RESP 17; TEMP 97.1; O2SAT 98
[2016-12-28] MEDS: diphenhydrAMINE HCL 50 MG CAP PO SCH (21:17)
[2016-12-28] MEDS: MIRTAZAPINE 15 MG TAB PO SCH (21:17)
[2016-12-29 06:00] VITALS: BP 110/63; PULSE 72; RESP 16; TEMP 97.7; O2SAT 100
[2016-12-29] MEDS: ZIPRASIDONE HCL 80 MG CAP PO SCH (08:21)
[2016-12-29] MEDS: FUROSEMIDE 40 MG TAB PO SCH (08:21)
[2016-12-29] MEDS: LIPASE/PROTEASE/AMYLASE (24,000/76,000/120,000) CAP PO SCH ×2 (08:23→13:25)
[2016-12-29] MEDS: LISINOPRIL 20 MG TAB PO SCH (09:00)
[2016-12-29] MEDS: POTASSIUM CHLORIDE 10 MEQ CONTROLLED RELEASE TAB PO SCH (09:00)
[2016-12-29] MEDS: RIVAROXABAN 20 MG TAB PO SCH (09:00)
[2016-12-29] MEDS: METOPROLOL TARTRATE 25 MG TAB PO SCH (09:00)
--- NOTE | 2016-12-29 09:47 | HHI.PR ---
Addendum to Inpatient Note Additional Information Recommending consultation with neurosurgeon either as an outpatient or inpatient if symptoms got worse Patient had a TG 328: Will start low dose Pravachol, patient to follow up with his PCP as an outpatient Thank you for this consultation we will sign off and stay available when necessary Lisa Yen MD Dec 29, 2016 09:47
[2016-12-29] MEDS ORDERED: MIRTA15 PO (12:17)
[2016-12-29] MEDS ORDERED: FURO1TAB60 PO (12:17)
[2016-12-29] MEDS ORDERED: ERGO1CAP30 PO (12:17)
[2016-12-29] MEDS ORDERED: CREON24 PO (12:17)
[2016-12-29] MEDS ORDERED: PRAV20TA PO (12:17)
[2016-12-29] MEDS ORDERED: GEOD80CA PO (12:17)
[2016-12-29] MEDS ORDERED: METO25TA3 PO (12:17)
[2016-12-29] MEDS ORDERED: LISI-515 PO (12:17)
[2016-12-29] MEDS ORDERED: POTA-243 PO (12:17)
[2016-12-29] MEDS ORDERED: ARIP400I IM (12:17)
[2016-12-29] MEDS ORDERED: XARE20TA PO (12:17)
--- NOTE | 2016-12-29 12:18 | HHI.DS ---
Psychiatry Discharge Summary Inpatient Psychiatric care?: Yes Advance Directive: Yes Mental Health AdvanceDirective: No Health Care Proxy: No Admission Admission Date Dec 25, 2016 at 17:53 Admission Diagnosis: (1) Schizophrenia, paranoid, chronic ICD Code: F20.0 - Paranoid schizophrenia Brief History 51-year-old male with self-admitted multiyear history of paranoid schizophrenia brought in under a Lee act for psychotic symptoms and suicidality. 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 He reported to law enforcement that his medications were not working. However, he presented to this emergency department with a bag full of unused medications. The patient had also [facility] and advised the social service manager that he needed help or he would likely harm himself or someone else. Upon interview, the patient does report auditory hallucinations. These hallucinations are generally critical of him and tell him that "they" are out to get him. He does feel paranoid in general and was carrying a knife to protect himself. However the social service manager at the [facility] convinced him to relinquish the knife. Patient still feels he is going to be jumped by some unknown person or persons. He feels that someone is trying to kill him. He does remark he feels people are trying to jump through the window to get to him. Finally, he is currently homeless. He was seeing Dr. Jang and Josephine Phelps. He moved up here 2 months ago and feels this is where he wants to live even though he has no home. He was admitted to [facility] approximately a week or 2 ago. He states he gets a Social Security check every month. He is positive for cocaine and marijuana and states he was given cocaine on the street. Tobacco Use In Past 30 Days: Cigars and/or Pipe Daily Alcohol Use: Never Hospital Course Patient was admitted to a locked, inpatient psychiatric unit. A general medical consultation was obtained. Appropriate precautions were in place throughout patient's hospital stay. Patient was seen and examined on the unit by psychiatry and also visited by counselor. Psychotropic medications were adjusted. Patient was started on long-acting injectable Abilify Maintena. Patient tolerated medications well without side effects. Patient had improvement in presenting psychiatric symptomatology during the course of his hospital stay. There was no evidence of any suicidality or homicidality on the inpatient unit. On the day of discharge: Patient seen and examined with counselor and nurse. Chart reviewed. Case discussed with nursing staff. No behavioral issues noted overnight by nursing staff. On my examination today, the patient is requesting discharge from the inpatient psychiatric unit. He describes his mood as "a lot better" versus admission. No depressive or hypomanic/manic symptoms elicited. He denies any audiovisual hallucinations and I can elicit no delusional material. He denies any suicidal or homicidal ideation, intent or plan on direct questioning and contracts for safety. Denies side effects from medications. Psychoeducation provided regarding his medication regimen with special focus on his QUINTERO Abilify. No physical complaints. Weighing the acute, chronic, and protective factors and based on the available evidence, I body make up artist to a reasonable degree of medical certainty that the patient is at low imminent risk of harm to self or others from a mental illness as defined under the Lee act and his level of function is adequate for outpatient care. The patient has maximized benefit from this inpatient psychiatric hospital stay will be discharged today to transitional housing obtained for him by the [facility] care nurse rn with psychiatric follow-up as arranged by counselor. Patient is also to follow-up with primary care. I counseled the patient to abstain from substances of abuse and encouraged outpatient chemical dependency evaluation and treatment. I have counseled the patient regarding warning signs for need to return to the psychiatric emergency room as part of the general safety plan. Results Blood Pressure 110 / 63 Vital Signs Date Time Temp Pulse Resp B/P (MAP) Pulse Ox O2 Delivery O2 Flow Rate FiO2 12/29/16 06:00 97.7 72 16 110/63 (79) 100 12/25/16 14:40 Room Air Laboratory Tests Test 12/26/16 13:02 12/27/16 11:20 Random Glucose 138 MG/DL (74-106) Estimat Glomerular Filtration Rate 73 ML/MIN (>89) Triglycerides Level 238 MG/DL (42-150) HDL Cholesterol 38.7 MG/DL (40.0-60.0) 25-Hydroxy Vitamin D Total 9.6 ng/ML (30-100) Monocytes (%) (Auto) 10.3 % (0.0-8.0) Laboratory Results Test 12/26/16 13:02 Cholesterol Level 137 MG/DL (120-200) HDL Cholesterol 38.7 MG/DL (40.0-60.0) Hemoglobin A1c 6.0 % (4.3-6.0) LDL Cholesterol 51 MG/DL (0-99) Triglycerides Level 238 MG/DL (42-150) Summary of Procedures None done Imaging Last Impressions Head CT 12/26/16 0000 Signed Impressions: Service Date/Time: Monday, December 26, 2016 13:30 - CONCLUSION: No acute disease. Jermaine Leigh MD Cervical Spine X-Ray 12/26/16 0000 Signed Impressions: Service Date/Time: Monday, December 26, 2016 13:11 - CONCLUSION: 1. Multilevel degenerative spondylosis most prominently at C5-7 with moderate to severe left bony neural foraminal narrowing at C5-6 and [id number] bilateral neural foraminal narrowing at C6-7. 2. No acute fracture or subluxation. Kevin Dye MD Pending results at discharge: No Medications # of Antipsychotic meds at D/C: 2 Appropriate >1 Antipsych meds?: 4 Approp Antipsych med options 1 - Minimum of three failed multiple trials of monotherapy. 2 - Documented plan to taper to monotherapy due to previous use of multiple meds OR cross-taper in progress at D/C. 3 - Documentation of augmentation of Clozapine. 4 - Justification other than those listed in allowable values 1-3, document here : Requires multiple antipsychotics for stabilization Discharge Discharge Date: Dec 29, 2016 Discharge Diagnosis: (1) Other psychotic disorder not due to a substance or known physiological condition Diagnosis: Principal (stabilized) ICD Code: F28 - Other psychotic disorder not due to a substance or known physiological condition (2) Cocaine abuse Diagnosis: Secondary (counseled to quit) ICD Code: F14.10 - Cocaine abuse, uncomplicated (3) Cannabis abuse Diagnosis: Secondary (counseled to quit) ICD Code: F12.10 - Cannabis abuse, uncomplicated Mental Status Exam at Disch Patient is casually dressed. Patient is well groomed. Patient is awake and alert and oriented person and hospital at least. No evidence of delirium. No motor abnormalities appreciated. Speech is within normal limits for rate, tone , volume. Language and fund of knowledge average. Focus and concentration intact. Memory grossly intact on clinical exam. Mood is reportedly much improved versus admission. Affect is a little blunted still. Thought process linear. No delusions elicited. Denies audiovisual hallucinations and does not appear internally stimulated. Denies suicidal or homicidal ideation, intent, or plan and contracts for safety. Insight and judgment seem fair. Pt Condition on Discharge: Stable Discharge Disposition: Discharge Home Discharge Instructions Diet Instructions: As Tolerated, No Restrictions Activities you can perform: Weight Bearing as Kendal Scheduled Appointment: as per counselor's notes New Orders: VITAMIN D,25-HYDROXY - 2 Months New Medications: Aripiprazole ER Inj (Abilify Maintena ER Inj) 400 Mg Susp 400 MG IM Q28D for Mental Health, #1 INJECTION 0 Refills This dose of Abilify Maintena due on 01/23/2017. Ergocalciferol (Ergocalciferol) 50,000 Unit Cap 52473 UNITS PO Q7D for Vitamin D supplement, #7 CAP 0 Refills Pravastatin (Pravachol) 20 Mg Tab 20 MG PO DAILY for Cholesterol Management for 15 Days, #15 TAB 1 Refill Ziprasidone (Geodon) 80 Mg Cap 80 MG PO BIDPC for Mental Health for 15 Days, CAP 1 Refill Continued Medications: Diphenhydramine (Diphenhydramine) 25 Mg Cap 50 MG PO BID PRN for AGITATION, CAP 0 Refills Furosemide (Lasix) 40 Mg Tab 40 MG PO DAILY for Health for 15 Days, #15 TAB 1 Refill (This prescription has been renewed) Hydroxyzine Pamoate (Vistaril) 50 Mg Cap 50 MG PO Q4HR PRN for ANXIETY, CAP 0 Refills Lisinopril (Lisinopril) 20 Mg Tab 20 MG PO DAILY for Blood Pressure Management for 15 Days, #15 TAB 1 Refill ( This prescription has been renewed) Metoprolol Tartrate (Metoprolol Tartrate) 25 Mg Tab 25 MG PO BID for Blood Pressure Management for 15 Days, #30 TAB 1 Refill (This prescription has been renewed) Mirtazapine (Mirtazapine) 15 Mg Tab 45 MG PO HS for Mental Health for 15 Days, TAB 1 Refill (This prescription has been renewed) Pancrelipase (Creon) 24,000-76,000-120,000 Units Cap 4 CAP PO TIDAC for Health for 15 Days, #90 CAP 1 Refill (This prescription has been renewed) Potassium Chloride ER (Klor-Con 10) 10 Meq Tab 10 MEQ PO BID for Potassium supplement for 15 Days, #30 TAB 1 Refill (This prescription has been renewed) Rivaroxaban (Xarelto) 20 Mg Tab 20 MG PO DAILY for Anticoagulation for 15 Days, #15 TAB 1 Refill (This prescription has been renewed) Discontinued Medications: Aripiprazole (Abilify) 10 Mg Tab 10 MG PO DAILY, #30 TAB 0 Refills Haloperidol (Haloperidol) 5 Mg Tab 5 MG PO BID PRN for AGITATION, TAB 0 Refills Lorazepam (Lorazepam) 2 Mg Tab 2 MG PO BID PRN for AGITATION, TAB 0 Refills Quetiapine (Quetiapine) 100 Mg Tab 100 MG PO TID for health, #90 TAB 0 Refills Risperidone (Risperdal) 4 Mg Tab 4 MG PO HS, #30 TAB 0 Refills Zolpidem (Ambien) 10 Mg Tab 10 MG PO HS for INSOMNIA, TAB 0 Refills Discharge Time <= 30 minutes Discharge/Advance Care Plan Health Problems: (1) Other psychotic disorder not due to a substance or known physiological condition (2) Cocaine abuse (3) Cannabis abuse Goals to promote your health * To prevent worsening of your condition and complications * To maintain your health at the optimal level Directions to meet your goals Take your medications as prescribed Follow your dietary instruction Follow activity as directed Keep your appointments as scheduled Take your immunizations and boosters as scheduled If your symptoms worsen call your PCP, if no PCP go to Urgent Care Center or Emergency Room For 06/11 questions related to your inpatient stay or results of tests pending at discharge, please contact Dr. Nadeem Long at Smoking is Dangerous to Your Health. Avoid second hand smoking Nadeem Long MD Dec 29, 2016 12:17
[2016-12-30] MEDS ORDERED: PRAVASTATIN SOD 20 MG TAB PO SCH (09:00)
== END 2016-12-29 17:20 | disposition home or self-care (01) | DRG 885 ==
LOC: NEPD 10:26 → NEDA 12-25 17:53 → H260 12-25 19:45
PROVIDERS: ADMIT Psychiatry & Neurology Psychiatry; ATTEND Psychiatry & Neurology Psychiatry
DX: F20.0 Paranoid schizophrenia (principal); I11.0 Hypertensive heart disease with heart failure; I50.9 Heart failure, unspecified; K86.1 Other chronic pancreatitis; E55.9 Vitamin D deficiency, unspecified; F10.10 Alcohol abuse, uncomplicated; F12.10 Cannabis abuse, uncomplicated; F14.10 Cocaine abuse, uncomplicated; F17.200 Nicotine dependence, unspecified, uncomplicated; Z59.0 Homelessness; Z76.5 Malingerer [conscious simulation]; Z86.73 Personal history of transient ischemic attack (TIA), and cerebral infarction without residual deficits; Z91.14 Patient's other noncompliance with medication regimen; F41.8 Other specified anxiety disorders; K44.9 Diaphragmatic hernia without obstruction or gangrene
CPT/HCPCS: 70450; 72050; 80053; 80061; 80307; 82306; 82607; 83036; 84443; 85025; 93005; Q0163